=== PATIENT | male | born 1980 | race Caucasian/White ===

== ENCOUNTER 2021-03-10 16:27 | Outpatient (CLI) | payer OTHER, SELFPAY ==
--- NOTE | ~2021-03-10 | XR_ITS ---
EXAMINATION: XR lumbar spine min 4V DATE: 03/10/2021 16:59 INDICATION: One year flow back pain. TECHNIQUE: Anteroposterior, lateral, and bilateral oblique views of the lumbar spine, and cone-down l ateral view of the lumbosacral junction were obtained. COMPARISON: CT abdomen and pelvis dated 01/20/2017 FINDINGS: Minimal lumbar levocurvature. Unchanged 3 mm retrolisthesis L5 on S1. Minimal likely physiologic ante rior wedging at T11-L1. Mild disc height loss at T11-T12 through L5-S1 excepting T12-L1. No pars inte rarticularis defects. Multilevel mild lumbar facet osteoarthritis. Sacral arches are intact. Mild catalina ateral sacroiliac osteoarthritis. IMPRESSION: 1. Mild lumbar spondylosis. Reviewed, dictated and finalized at location A. IMPRESSION: 1. Mild lumbar spondylosis.
== END 2021-03-10 16:28 | disposition home or self-care (01) ==
LOC: ANHIMG 16:33
PROVIDERS: PCP Internal Medicine; Visit Provider Internal Medicine
DX: M47.896 Other spondylosis, lumbar region (principal)
CPT/HCPCS: 72110

== ENCOUNTER 2024-11-05 08:09 | Outpatient (CLI) | payer OTHER, SELFPAY ==
--- NOTE | ~2024-11-05 | CT_ITS ---
CT brain wo con Ordering provider: Deuce Curtis, History: 44 years Male with . Other amnesia . Comparison: None. Technique: CT of the head without contrast. Radiation reduction technique utilized.The dose-length product was 681 mGy-cm. FINDINGS: BRAIN PARENCHYMA AND CSF SPACES: No midline shift, mass effect or hemorrhage. The brain parenchyma a nd CSF spaces are otherwise normal. VISUALIZED PARANASAL SINUSES: Bilateral ethmoid sinus disease.. MASTOIDS: Well aerated. BONES: The bones appear intact. SOFT TISSUES: Visualized nasopharynx is normal. Superficial soft tissues are normal. IMPRESSION: No acute intracranial findings. Reviewed, dictated and finalized at location A. [employer]
--- OUTSIDE RECORDS SUMMARY | 2024-11-12 13:15 | XMS_ITS | CONTINUITY OF CARE DOCUMENT ---
Author Name [email or web address] riddle Address Unknown Organization [facility] Address [address] [place] [address] [address] [place] [address] Phone [phone] Care Team Providers Care Target Developer Name Role Phone venkatesh riddle Unavailable Unavailable
--- OUTSIDE RECORDS SUMMARY | 2024-11-12 13:15 | XMS_ITS | Data Portability ---
Author Organization [place] [facility], Main Office Address [address] [place] [address] Assessment No assessment recorded. Plan of Treatment Reminders Order Date Submit Date Provider Last Modified By Organization Details Last Modified Time Details Appointments None recorded. Lab PSA, serum or plasma 023 023 [id number] [facility], [address], [place], [address], 3 09:55:43 lipid panel, serum 023 023 [id number] [facility], [address], [place], [address], 3 09:55:42 lipid panel, serum 023 023 [id number] [facility], [address], [place], [address], 3 09:55:42 CBC w/ auto diff 023 023 [facility], [address], [place], [address], 3 09:55:42 T4, free, serum 023 023 [id number] [facility], [place], [address], 3 09:55:42 TSH, serum or plasma 023 023 [id number] [facility], [address], [address], [place], [address], 3 09:55:42 CMP, serum or plasma 024 [id number] [facility], [address], [address], [place], [address], 4 11:38:38 lipid panel, serum 024 [email or web address] [facility], [address], [address], [place], [address], 4 11:38:38 PSA, serum or plasma [id number] [facility], [address], [address], [place], [address], 4 10:14:23 CMP, serum or plasma 024 [id number] [facility], [address], [address] [place], [place], [address], 4 10:14:22 lipid panel, serum 024 [facility], [address], [address] [place], [place], [address], 4 10:14:22 CBC w/ auto diff 024 [facility], [address], [address], [place], [address], 4 10:14:22 TSH, serum or plasma 024 024 [id number] [facility], [address], [address], [place], [address], 4 10:14:23 T4, free, serum 024 [facility], [address], [place], [address], 4 10:14:23 vitamin B12, serum [id number] [facility], [address], [place], [address], 4 10:14:23 Referral None recorded. Procedures None recorded. Surgeries None recorded. Imaging None recorded. Medication Orders None recorded. Patient TargetsNo targets recorded. Patient Instructions Encounter Date Encounter Id Patient Instructions Last Modified By Organization Details Last Modified Time 03/01/2023 [id number] Follow-up for hyperlipidemia clinically stable doing well. Does need blood work in the form of CBC, CMP, lipid, thyroid and PSA. Continue on current Rx follow-up in six months. [email or web address] Not available 03/01/2023 16:33:10 08/30/2023 [id number] Follow-up hyperlipidemia -obesity class one all clinically stable. Will continue on current Rx at this time. Had recent blood work looked fine. Will continue on medications and follow-up in six months. Portions of the record may have been created with voice recognition software. Occasional wrong-word or ? hneed-t-ylje? substitutions may have occurred due to the inherent limitations of voice recognition software. Read the chart carefully and recognize, using context, where substitutions have occurred. Next Appt: 6 Months Approximate Date: 02/26/2024 [email or web address] Not available 08/30/2023 17:04:52 03/16/2024 [id number] risk assessment* [email or web address] Not availabl e 03/16/2024 17:37:08 INFLUENZA VACCIN E TD/TDAP Recommended today, patient declined Ordered Pat ient will get at local pharmacy/health department PNEUMONIA VACCINE Ordered Recommended today, patient declined Patient will get at local pharmacy/health department Recommend ed at age 65 SHINGLES PSA Ordered No screening necessary patient is up to date COLORECTAL SCREENING Recommended today, but patient declined Ordered Col onoscopy declined. Cologuard ordered No screening necessary until age 45 DEPRESSION SCREENING Negative BMI Overweight NUTRITION PHYSICAL ACTIVITY ALCOHOL USE No alcohol use Occasional/Socia l Use TOBACCO USE LUNG CANCER SCREENING Non Smoker-not indicated SEXUALLY ACTIVE HEPATITIS C SCREENING Not indicated GLUCOSE SCREENING LIPID SCREENING [email or web address] Not available 03/16/2024 17:23:06 Medical wellness evaluation risk assess. Follow-up for hyperlipidemia currently clinically stable. Does not really due for a PSA at this time. Will continue on current Rx check a lipid and CMP panel. Will also check a lipoprotein level. Follow-up in six months Next Appointment: 6 Months Approximate Date: 09/12/2024 Portions of the record may have been created with voice recognition software. Occasional wrong-word or ? rewca-y-zptl? substitutions may have occurred due to the inherent limitations of voice recognition software. Read the chart carefully and recognize, using context, where substitutions have occurred. Not available 03/16/2024 17:36:56 10/19/2024 [id number] Follow-up for hyperlipidemia and memory impairment. Plan to get a CT scan of the brain without contrast to rule out the possibility of any intracranial abnormalities. Also check blood work consisting of CBC, CMP, lipid, thyroid and B12 level. Pending those results may need to consider further diagnostic or referral for evaluation of cognitive or neuropsychiatric problems. Additional Orders - Directives - Recommendations 1. CT scan of the brain without contrast cognitive impairment Follow Up: 6 Months Approximate Date: 04/17/2025 Portions of the record may have been created with voice recognition software. Occasional wrong-word or ? lrxoh-k-gkkl? substitutions may have occurred due to the inherent limitations of voice recognition software. Read the chart carefully and recognize, using context, where substitutions have occurred. Created: Deuce Curtis M.D. 10.19.2024 04:28 PM [email or web address] Not available 10/19/2024 17:28:16 Reason for Referral None Reported. Results Created Date Observation Date Name Description Value Unit Range Abnormal Flag Note LastModifiedBy Organization Detail LastModifiedTime 11/02/20 22 11/02/2022 SARS- COV-2 RNA(C OVID1 9),RT -PCR sars-cov-2 RNA(covid19) ,RT-PCR negati ve This test has been autho rized by the FDA under an Emerg ency Use Autho rizat ion (EUA) for use by autho rized labor atori es. Negat elis resul ts do not precl ude SARS- CoV-2 and shoul d not be used as the sole basis for treat ment or other patie nt manag ement decis ions. Test resul ts shoul d be corre lated with the clini yuri histo ry, epide miolo gical data, and other data avail able to the clini antony evalu ating the patie nt. Sea berrios w the Fact Sheet s for healt h care provi ders and patie nts at [facility] emil: https ://ww Spodly.[employer]baza[employer] .gov/ media /1363 12/do wnloa d https ://ww Spodly.[employer] .gov/ media /1363 13/do wnloa d https ://[employer] .gov/ media /1421 92/do wnloa d https ://[employer] .gov/ media /1421 91/do wnloa d Metho dolog y: Real- Time RT-PC R Not Available [facility] (Lab) [address] [place], [address], 11/02/2022 11:06:14 11/02/20 22 11/02/2022 INFLU MALA A/B ANTIG EN RAPID flu A negati ve negati ve Not Available [facility] (Lab) [address] [place], [address], 11/02/2022 10:30:53 11/02/20 22 11/02/2022 INFLU MALA A/B ANTIG EN RAPID flu B negati ve negati ve THIS TEST CAN NOT DISTI NGUIS H INFLU MALA A VIRUS SUBTY PES. ALSO, SEA E NOTE THAT A NEGAT ELIS RESUL T DOES NOT EXCLU DE INFLU MALA VIRUS INFEC TION. IF MORE CONCL USIVE TESTI NG IS AMOR ED, [facility] W-UP CONFI RMATO RY TESTI NG WITH RT-PC R IS SONDRA FORDE. Not Available [facility] (Lab) [address] [place], [address], 11/02/2022 10:30:53 11/02/20 22 11/02/2022 INFLU MALA A/B ANTIG EN RAPID valid QC positi ve Not Available [facility] (Lab) [address] [place], [address], 11/02/2022 10:30:53 11/02/20 22 11/02/2022 INFLU MAAL A/B ANTIG EN RAPID lot # [id number] Not Available [facility] (Lab) [address] [place], [address], 11/02/2022 10:30:53 11/02/20 22 11/02/2022 INFLU MALA A/B ANTIG EN RAPID source remote inpatient coder swab Not Available [facility] (Lab) [address] [place], [address], 11/02/2022 10:30:53 06/14/20 23 06/19/2023 LIPID PANEL (REFL ) cholesterol, total 137 mg/dL <200 normal Not Available [address], [address], 06/19/2023 20:27:08 06/14/20 23 06/19/2023 LIPID PANEL (REFL ) HDL cholesterol 41 mg/dL > or = 40 normal Not Available [address], [address], 06/19/2023 20:27:08 06/14/20 23 06/19/2023 LIPID PANEL (REFL ) triglyceride s 122 mg/dL <150 normal Not Available [address], [address], 06/19/2023 20:27:08 06/14/20 23 06/19/2023 LIPID PANEL (REFL ) LDL-choleste rol 76 mg/dL _(yuri c) normal Refer ence range : <100 Amor able range <100 mg/dL for prima ry preve ntion ; <70 mg/dL for patie nts with CHD or diabe tic patie nts with > or = 2 CHD risk facto rs. LDL-C is now calcu lated using the Nadeen n-Hop kins calcu latio n, which is a valid ated novel metho d provi ding tomeka r accur acy than the Fried petar equat ion in the estim ation of LDL-C . Nadeen n SS et al. SHE. 2013; 310(1 9): 2061- 2068 (http ://ed ucati on.Qu Sada mendenhallMirakls. com/f aq/FA Q164) Not Available [facility] [address] [address] [place], [address], 06/19/2023 20:27:08 06/14/20 23 06/19/2023 LIPID PANEL (REFL ) chol/HDLC ratio 3.3 (calc ) <5.0 normal Not Available [facility] [address] [address] , [place], [address], 06/19/2023 20:27:08 06/14/20 23 06/19/2023 LIPID PANEL (REFL ) non HDL cholesterol 96 mg/dL _(yuri c) <130 normal For patie nts with diabe emil plus 1 major ASCVD risk facto r, treat ing to a non-H DL-C goal of <100 mg/dL (LDL- C of <70 mg/dL ) is victor hugo garg optio n. Not Available [facility] [address] [address] [facility] [place], [address], 06/19/2023 20:27:08 06/14/20 23 06/19/2023 PSA, POST- PROST ATECT HAYLEY PSA, icma 0.50 NG/mL REFER ENCE RANGE S for PSA: LESS THAN 0.10 ng/mL AFTER RADIC AL PROST ATECT HAYLEY. 4.0 ng/mL OR LESS IN HEALT HY MALES WITHO UT PROST ATECT HAYLEY. PSA value s obtai joan with diffe rent assay metho ds or kits canno t be used inter carbone eably . This test was perfo rmed using the Beck an Coult er DxI metho d. PSA, ICMA is not to be used as a diagn ostic proce dure witho ut confi rmati on of the diagn osis by ano er estab lisyong d produ ct or proce dure. The lower limit of accur ate quant ifica tion for this assay is 0.02 ng/mL . PSA value s less than 0.02 ng/mL canno t be accur ately measu red and will be repor luis as less than 0.02 ng/mL . Speci mens with PSA level s below the lower limit of accur ate quant ifica tion shoul d be consi dered as negat elis. In patie nts with a negat elis resul t for post prost atect hayley PSA, seria l monit oring of PSA level s at regul ar inter vals, along with physi yuri exami natio ns and other tests , may help to detec t recur rent prost ate cance r. Not Available [facility] [address], [address], 06/19/2023 20:27:06/14/20 23 06/19/2023 CBC (INCL UDES DIFF/ PLT) white blood cell count 4.7 thous and/u L 3.8-10 .8 normal Not Available [facility] [address], [address], 06/19/2023 20:27:06/14/20 23 06/19/2023 CBC (INCL UDES DIFF/ PLT) red blood cell count 4.71 zoey on/uL 4.20-5 .80 normal Not Available [facility] [address], [address], 06/19/2023 20:27:09 06/14/20 23 06/19/2023 CBC (INCL UDES DIFF/ PLT) hemoglobin 14.8 g/dL 13.2-1 7.1 normal Not Available [facility] [address], [address], 06/19/2023 20:27:09 06/14/20 23 06/19/2023 CBC (INCL UDES DIFF/ PLT) hematocrit 43.9 % 38.5-5 0.0 normal Not Available [address], [address], 06/19/2023 20:27:06/14/20 23 06/19/2023 CBC (INCL UDES DIFF/ PLT) MCV 93.2 fL 80.0-1 00.0 normal Not Available [address], [address], 06/19/2023 20:27:06/14/20 23 06/19/2023 CBC (INCL UDES DIFF/ PLT) MCH 31.4 pg 27.0-3 3.0 normal Not Available [facility] [address], [address], 06/19/2023 20:27:06/14/20 23 06/19/2023 CBC (INCL UDES DIFF/ PLT) MCHC 33.7 g/dL 32.0-3 6.0 normal Not Available [address], [address], 06/19/2023 20:27:06/14/20 23 06/19/2023 CBC (INCL UDES DIFF/ PLT) RDW 12.3 % 11.0-1 5.0 normal Not Available [address], [address], 06/19/2023 20:27:06/14/20 23 06/19/2023 CBC (INCL UDES DIFF/ PLT) platelet count 309 thous and/u L 140-40 0 normal Not Available [facility] [address], [address], 06/19/2023 20:27:06/14/20 23 06/19/2023 CBC (INCL UDES DIFF/ PLT) MPV 8.4 fL 7.5-12 .5 normal Not Available [address], [address], 06/19/2023 20:27:09 06/14/20 23 06/19/2023 CBC (INCL UDES DIFF/ PLT) absolute neutrophils 3116 cells /uL 1500-7 800 normal Not Available [address], [address], 06/19/2023 20:27:09 06/14/20 23 06/19/2023 CBC (INCL UDES DIFF/ PLT) absolute lymphocytes 968 cells /uL 850-39 00 normal Not Available [address], [address], 06/19/2023 20:27:06/14/20 23 06/19/2023 CBC (INCL UDES DIFF/ PLT) absolute monocytes 418 cells /uL 200-95 0 normal Not Available [address], [address], 06/19/2023 20:27:09 06/14/20 23 06/19/2023 CBC (INCL UDES DIFF/ PLT) absolute eosinophils 169 cells /uL 15-500 normal Not Available [facility] [address], [address], 06/19/2023 20:27:09 06/14/20 23 06/19/2023 CBC (INCL UDES DIFF/ PLT) absolute basophils 28 cells /uL 0-200 normal Not Available [address], [address], 06/19/2023 20:27:09 06/14/20 23 06/19/2023 CBC (INCL UDES DIFF/ PLT) neutrophils 66.3 % normal Not Available [facility] [address], [address], 06/19/2023 20:27:09 06/14/20 23 06/19/2023 CBC (INCL UDES DIFF/ PLT) lymphocytes 20.6 % normal Not Available [facility] [address], [address], 06/19/2023 20:27:09 06/14/20 23 06/19/2023 CBC (INCL UDES DIFF/ PLT) monocytes 8.9 % normal Not Available [address], [address], 06/19/2023 20:27:09 06/14/20 23 06/19/2023 CBC (INCL UDES DIFF/ PLT) eosinophils 3.6 % normal Not Available [address], [address], 06/19/2023 20:27:09 06/14/20 23 06/19/2023 CBC (INCL UDES DIFF/ PLT) basophils 0.6 % normal Not Available [address], [address], 06/19/2023 20:27:09 06/14/20 23 06/19/2023 T4, FREE T4, free 1.1 NG/dL 0.8-1. 8 normal Not Available [address], [address], 06/19/2023 20:27:10 06/14/20 23 06/19/2023 TSH TSH 3.03 mIU/L 0.40-4 .50 normal Not Available [address], [address], 06/19/2023 20:27:11 11/05/20 24 11/05/2024 CT, brain , w/o contr ast No observ ation record ed. [address], [place], [address], 11/05/2024 14:01:23 Result Notes None recorded. 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 Not Available [facility] 3 14:48:34 Finding of body mass index 966944805 Active 2021 Not Available [facility] 3 14:48:34 Hypoglycem ia 402649932 Active Not Available [facility] 3 14:48:34 Contact dermatitis 24015123 Active Not Available [facility] 3 14:48:35 Hyperlipid emia 30616447 Active 2019 Not Available [facility] 3 14:48:35 Obese class I 3609333852260 07 Active 2022 Deuce Curtis MD [address], [place], [address] , [facility] 3 17:03:13 Pruritic rash 70656321 Active 2023 Ciara Baker CMA [facility], [place] [facility] 4 16:07:45 Acute bronchitis 78962868 Active 2023 Deuce Curtis MD [address], [place], [address] , [facility] 4 16:59:21 Memory impairment 662073252 Active 2023 Deuce Curtis MD [address], [place], [address] , [facility] 4 17:23:37 Disorder of prostate 34981693 Active 2023 Deuce Curtis MD [address], [place], [address] , [facility] 4 17:28:03 Problem Notes None recorded. Procedures Surgical History None recorded. Imaging Results Imaging Date Name Status LastModified by Organiz ation Details LastModified Time 11/05/2024 CT, brain, w/o contrast completed [address], [place], [address], 11/05/2024 14:01:23 Procedure Notes None recorded. Medical Equipment None Reported. Medications Name Sig Start Date Stop Date Status Note LastModified by Organization Details LastModified Time amoxicillin 500 mg capsule Take 1 capsule 3 times a day by oral route for 10 days. 10/06 completed Not Available Not Available Not Available atorvastati n 10 mg tablet TAKE 1 TABLET BY MOUTH EVERY DAY active Not Available Not Available No t Available benzonatate 200 mg capsule Take 1 capsule 3 times a day by oral route. 10/19 completed Not Available Not Available Not Available Medrol (Raz) 4 mg tablets in a dose pack Take by oral route as directed 03/01 completed Not Available Not Available Not Available Zithromax Z-Raz 250 mg tablet Take 2 TABLET EVERY DAY by oral route for 1 day then one daily 10/19 completed Not Available Not Available Not Available Proctozone- HC 2.5 % topical cream perineal applicator LUCIO THIN LAYER EXT AA 2 TO 4 XD 09/01 completed Not Available Not Available Not Available clotrimazol e-betametha sone 1 %-0.05 % topical cream APPLY TOPICALLY TO THE AFFECTED AREA TWICE DAILY 10/19 completed Not Available Not Available Not Available hydroxyzine HCl 10 mg tablet Take by oral route four times daily PRN for itching 11/19 completed Not Available Not Available Not Available multivitami n active Not Available Not Available Not Available Zyrtec 10 mg capsule Take by oral route. active Not Available Not Available No t Available [employer]NOW COVID-19 Ag Self Test kit TEST DIRECTED TODAY 03/01 completed Not Available Not Available Not Available Vitals Date Recorded Body mass index (BMI) Body height Oxygen saturation Oxygen saturation in Arterial blood by Pulse oximetry Heart rate Body temperature Body weight Systolic blood pressure Diastolic blood pressure Provider Name and Address Organization Details Last Updated DateTime 2 31.7 kg/m2 190.5 cm 98 % 98 % 74 /min 98.1 [degF] 270490. 46 g 114 mm[Hg] 70 mm[Hg] Not Available [facility] 3 14:47:56 Date Recorded Body height Body mass index (BMI) Body weight Heart rate Body temperature Oxygen saturation Oxygen saturation in Arterial blood by Pulse oximetry Systolic blood pressure Diastolic blood pressure Provider Name and Address Organization Details Last Updated DateTime 3 190.5 cm 33.4 kg/m2 620537. 16 g 76 /min 97 [degF] 98 % 98 % 122 mm[Hg] 78 mm[Hg] Corina Frausto [facility] 3 16:22:55 Date Recorded Body height Body mass index (BMI) Body weight Body temperature Heart rate Oxygen saturation Oxygen saturation in Arterial blood by Pulse oximetry Systolic blood pressure Diastolic blood pressure Provider Name and Address Organization Details Last Updated DateTime 3 190.5 cm 33.5 kg/m2 531996. 76 g 96.8 [degF] 71 /min 99 % 99 % 122 mm[Hg] 78 mm[Hg] Umm Maria MA [facility] 3 16:33:54 Date Recorded Body height Body mass index (BMI) Body weight Heart rate Body temperature Oxygen saturation Oxygen saturation in Arterial blood by Pulse oximetry Systolic blood pressure Diastolic blood pressure Provider Name and Address Organization Details Last Updated DateTime 4 190.5 cm 28.9 kg/m2 832537. 84 g 64 /min 97.3 [degF] 99 % 99 % 130 mm[Hg] 78 mm[Hg] MARITZA Zapata [facility] 4 17:18:16 Date Recorded Body height Body weight Heart rate Body temperature Oxygen saturation Oxygen saturation in Arterial blood by Pulse oximetry Systolic blood pressure Diastolic blood pressure Provider Name and Address Organization Details Last Updated DateTime 4 190.5 cm 516417. 25 g 72 /min 97 [degF] 99 % 99 % 130 mm[Hg] 72 mm[Hg] MARITZA Zapata [facility] 4 17:00:50 Social History None recorded. Functional Status None recorded. Mental Status None recorded. Family History Nothing Reported Notes:Mother 65 fro m complications of cystic fibrosis Father 75 ASHD, Interstitial lung disease, RA,High cholesterol and diverticulitis One older sister in good health. Medical History Condition Response NERVE DISEASE N BLINDNESS N RHEUMATIC FEVER N KIDNEY STONES N BLADDER PROBLEMS N MRSA N OTHER # 1 N POLIO N LUNG DISEASE/DISORDER N HISTORY OF DRUG ABUSE N RADIATION / CHEMOTHERAPY N COPD N Other # 2 N BLOOD DISEASES N EAR OR HEARING PROBLEMS N MUMPS N SHINGLES N BOWEL PROBLEMS N DEPRESSION (INCLUDING POST ) N STROKE/TIA N ULCERS N BENIGN PROSTATIC HYPERPLASIA N MEASLES N HYPOTENSION N MYOCARDIAL INFARCTION N OBESITY N GERD/NAUSEA N ANEURYSM N URINARY/BLADDER/KIDNEY PROBLEMS N CORONARY ARTERY DISEASE (CAD) N ADDICTION CONCERNS N Impotence N ENDOMETRIOSIS N USE OF BLOOD THINNERS N SKIN PROBLEMS N GASTROINTESTINAL DISORDER N PERIPHERAL VASCULAR DISEASE N MUSCLE,JOINT OR BONE PROBLEMS N GASTROINTESTINAL BLEEDING N BLOOD CLOTS N ASTHMA N CATARACTS N ERECTILE DYSFUNCTION N VARICOSITIES N GI PROBLEMS N Low Testosterone N INFERTILITY N AIDS/HIV N CHEMOTHERAPY / RADIATION N LIVER DISEASE N MALE HYPOGONADISM N HYPERTENSION N Deficiency N TOURETTE'S N ANXIETY DISORDER N BLOOD TRANSFUSION N ANEMIA/BLOOD DISORDER N CHRONIC EAR INFECTIONS N BRONCHITIS N TUBERCULOSIS N GLAUCOMA N FOOT PROBLEM N DIVERTICULITIS N SLEEP APNEA N CHICKENPOX N INFECTIOUS DISEASE N PROSTATE N HEART ARRHYTHMIA N INSOMNIA N HIGH CHOLESTEROL / HYPERLIPIDEMIA Y EYE PROBLEMS N HYPERTHYROIDISM N EDEMA N CHRONIC PAIN SYNDROME N HYPOTHYROIDISM N CONSTIPATION N CAROTID BLOCKAGE N BACK / NECK PROBLEMS N HAVE YOU BEEN HOSPITALIZED OR SEEN IN [facility] IN THE PAST YEAR ? N ATHEROSCLEROSIS N BREAST PROBLEMS N DIALYSIS N ECZEMA N OSTEOPOROSIS N ARTHRITIS N NO SIGNIFICANT PAST MEDICAL HISTORY N APPENDICITIS N DIABETES, TYPE N BAD TEETH N ENT N HEARTBURN / REFLUX N AUTISM SPECTRUM DISORDER (ASD) N HEPATITIS / LIVER DISEASE N GOUT N SLEEP DISORDER N ALZHEIMER'S DISEASE N Brain Problems N DEMENTIA N HERPES N SEIZURES/EPILEPSY N HEADACHES/MIGRAINES N VASCULAR DISEASE N PACEMAKER N Blood Disorder N DIZZINESS N HEART DISEASE/HEART PROBLEMS N KIDNEY DISEASE N MULTIPLE SCLEROSIS N CANCER: SPECIFY N CARDIAC ARRHYTHMIA N ATRIAL FIBRILLATION N Gall Stones N PULMONARY EMBOLISM N AUTOIMMUNE DISEASE N Immunizations Vaccine Type Date Status Note Provider Nam e and Address Organization Details Recorded Time SARS-COV-2 (COVID-19) vaccine, UNSPECIFIED 1 completed Not Available [facility] 01/09/2023 14:51:48 SARS-COV-2 (COVID-19) vaccine, UNSPECIFIED 1 completed Not Available [facility] 01/09/2023 14:51:48 Influenza, split virus, quadrivalent, PF 2 completed Not Available [facility] 01/09/2023 14:51:48 Influenza, split virus, quadrivalent, PF 1 completed Not Available [facility] 01/09/2023 14:51:48 Past Encounters Encounter ID Performer Location Encounter Start Date Encounter Closed Date Diagnosis/Indication Diagnosis SNOMED-CT Code Diagnosis ICD10 Code [id number] [facility] [place] [address] [place] [address] y , [place] [address] 03/10/2021 00:00:00 03/10/2021 16:48:[id number] [facility] [place] [address] [place] [address] y , [place] [address] 09/01/2021 00:00:00 09/01/2021 16:43:[id number] [facility] [place] lle [address] [place] [address] y , [place] [address] 03/02/2022 00:00:00 03/02/2022 16:41:[id number] [facility] [place] [address] [place] [address] y , [place] [address] 08/31/2022 00:00:00 08/31/2022 16:46:[id number] [facility] [place] [address] [place] [address] [place] [address] 03/01/2023 16:13:58 03/01/2023 16:35:19 Hyperlipidemia 33871988 E78.5 Disorder of prostate 302 18368 N42.9 [id number] [address] [facility] [place] [address] [place] [address] y , [place] [address] 08/30/2023 16:26:12 08/30/2023 17:10:49 Hyperlipidemia 17137850 E78.5 Obese class I [id number] 79488 E66.9 [id number] Deuce Curtis MD [facility] Internal Med [facility] [address] [address] 03/16/2024 17:12:47 03/16/2024 17:39:59 Adult health examination 972930363 Z00.00 Depression screening 171 679882 Z13.31 Hyperlipidemia 01167251 E78.5 [id number] [facility] Internal Med [facility] 2043 [facility] 24 [place] [address] 10/19/2024 16:50:32 10/19/2024 17:33:05 Hyperlipidemia 22247542 E78.5 Memory impairment 481304 006 R41.3 Disorder of prostate 302 28615 N42.9 Health Concerns Section Related Observation LastModified by Organization Detai ls LastModified Time None Recorded Concern Status LastModified by Organization Details LastModified Time None Recorded Advance Directives Directive None Recorded Payers Encounter Date Sequence Insurance Name Policy Number Policy Ceron Covered Member ID Ceron Member ID Guarantor Name 03/01/2023 1 [facility] 3Scan CHOICE PLUS (PPO) [id number] Chapincito Cordero Errol [id number] Chapincito Cordero Errol 08/30/2023 1 [facility] 3Scan CHOICE PLUS (PPO) [id number] Chapincito Cordero Errol [id number] Chapincito Cordero Errol 03/16/2024 1 [facility] 3Scan CHOICE PLUS (PPO) [id number] Chapincito A Errol [id number] Chapincito Cordero Errol 10/19/2024 1 [facility] 3[employer] CHOICE PLUS (PPO) [id number] Chapincito Cordero Errol [id number] Chapincito Cordero Errol Notes Date Note Type Note Provider Name and Address Organization Details Recorded Time 3 text/html Patient Name: Chapincito Cordero ElmaiterDate Of Service: Saturday ( 03.01.2023 ): 1980 Age: 42 There has been approximately a 13 lb weight gain since 08/31/2022. This represents approximately a 5.1% change in weight. Weight change attributable to lifestyle changes. Vital Signs:Blood Pressure: Sitting Rt. Arm 122/78Pulse: Sitting 76 /min and RegularRespirations: 12Height 75 in or 1.9 mWeight 267 lb or 121.1 kgBMI 33.4Temperature: 97 F or 36.1 CPulse Oximetry: 98 % at rest on no oxygen Chief Complaint: Addressed in HPI Problems or conditions discussed in the HPI were the only ones reviewed during the encounter.Only social and family history addressed in the HPI were reviewed during this encounter. Attendant(s): None Constitutional and Systemic Symptoms: none Medication Reconciliation: from medication list. History of Present Illness #1. Type II Hypercholesterolaemia: Currently taking medication and tolerating well. No interval complaints of any muscle pain or arthralgia. No significant liver changes with medications. Last lipid panel: fair control. Therapy reviewed regarding treatment of cholesterol management and include diet and Atorvastatin Calcium.Medication List Reviewed and Reconciled 3Atorvastatin Calcium 10 MG (TABLET - ORAL) Once DailySocial HistoryDoes not smoke or drink.Working at a [employer] service currentlyFamily HistoryMother 65 from complications of cystic fibrosisFather 75 ASHD, Interstitial lung disease, RA,High cholesterol and diverticulitisOne older sister in good health. Deuce Curtis MD [address] [place] [address], [place], [address], [facility] [employer] 03/01/2023 16:33:26 3 text/html Patient Name: Chapincito Cordero ReiterDate Of Service: Saturday ( 08.30.2023 ): 1980 Age: 42 There has been approximately a 1 lb weight gain since 03/01/2023. This represents approximately a .4% change in weight. Weight change attributable to lifestyle changes. Vital Signs:Blood Pressure: Sitting Rt. Arm 122/78Pulse: Sitting 71 /min and RegularRespiratory Rate: 12Height 75 in or 1.9 mWeight 268 lb or 121.6 kgBMI 33.5Temperature: 96.8 F or 36.0 CPulse Oximetry: 99 % at rest on no oxygen Chief Complaint: Addressed in HPI Problems or conditions discussed in the HPI were the only ones reviewed during the encounter.Only social and family history addressed in the HPI were reviewed during this encounter. Attendant(s): NoneConstitutional and Systemic Symptoms:none Medication Reconciliation: from medication list. History of Present Illness #1. Type II Hypercholesterolaemia: Currently taking medication and tolerating well. No interval complaints of any muscle pain or arthralgia. No significant liver changes with medications. Last lipid panel: fair control. Therapy reviewed regarding treatment of cholesterol management and include diet. #2. Hx of obesity. Currently Class 1 Obesity BMI 30-34.99. Has tried numerous dietary support and supplements with no benefit. Instructed on the health consequences of the obese status particularly cancer - diabetes and heart disease. Discussed new modalities of weight loss including GLP-1 medications that are used to treat diabetes. Potential candidate for bariatric surgery: No. Wishes to be evaluated by Dietary: No and was offered to be evaluated and instructed by product director on weight loss diet.Medication List Reviewed and Reconciled 3Atorvastatin Calcium 10 MG (TABLET - ORAL) Once DailySocial HistoryDoes not smoke or drink.Working at a [employer] service currentlyFamily HistoryMother 65 from complications of cystic fibrosisFather 75 ASHD, Interstitial lung disease, RA,High cholesterol and diverticulitisOne older sister in good health. TEST RESULT RANGE UNITSLIPID PANEL (REFL) Date: 3CHOLESTEROL, TOTAL 137 <200 MG/DLHDL CHOLESTEROL 41 > OR = 40 MG/DLTRIGLYCERIDES 122 <150 MG/DLLDL-CHOLESTEROL 76 MG/DL (CALC) Deuce Curtis MD [address] [facility], [facility] [address], [place], [address], [facility] [employer] 08/30/2023 17:05:10 4 text/html Patient Name: Chapincito Cordero ReiterDate Of Service: Saturday ( 03.16.2024 ): 1980 Age: 43 There has been approximately a 37 lb weight loss since 08/30/2023. This represents approximately a 13.8% change in weight. Weight change attributable to lifestyle changes. Vital Signs:Blood Pressure: Sitting Rt. Arm 130/78Pulse: Sitting 64 /min and RegularRespiratory Rate: 12Height 75 in or 1.9 mWeight 231 lb or 104.8 kgBMI 28.9Temperature: 97.3 F or 36.3 CPulse Oximetry: 99 % at rest on no oxygen Chief Complaint: Addressed in HPI Problems or conditions discussed in the HPI were the only ones reviewed during the encounter.Only social and family history addressed in the HPI were reviewed during this encounter. Attendant(s): NoneConstitutional and Systemic Symptoms:none Medication Reconciliation: from medication list. History of Present Illness In for a well patient check up. Last well patient evaluation was approximately one year. No interval complaints of any new major medical problems. No hx of any chest pain, shortness of breath, nausea, vomiting, diarrhea or constitutional symptoms.PSA already performedColonoscopy or Cologuard: not dueImmunizations Up To Date or refuses to takeNo Significant Change In Family HxFall Risk normalDepression Score: 0Hearing normalVisual correctedReviewed Smoking and Drug HistoryReviewed Immunization HistoryInstructed on importance of weight on diabetes, heart and other diseases aggravated by obesity.Instructed on importance of weight on diabetes, heart and other diseases aggravated by obesity. #1. Type II Hypercholesterolaemia: Currently taking medication and tolerating well. No interval complaints of any muscle pain or arthralgia. No significant liver changes with medications. Last lipid panel: fair control. Therapy reviewed regarding treatment of cholesterol management and include diet and Atorvastatin Calcium. Active Medication ListAtorvastatin Calcium 10 MG (TABLET - ORAL) Once Daily Social HistoryDoes not smoke or drink.Working at a [employer] service currently Family HistoryMother 65 from complications of cystic fibrosisFather 75 ASHD, Interstitial lung disease, RA,High cholesterol and diverticulitisOne older sister in good health. TEST RESULT RANGE UNITSCBC (INCLUDES DIFF/PLT) Date: 06/14/2023WHITE BLOOD CELL COUNT 4.7 3.8-10.8 THOUSAND/ULHEMOGLOBIN 14.8 13.2-17.1 G/DLHEMATOCRIT 43.9 38.5-50.0 %PLATELET COUNT 309 140-400 THOUSAND/ULLIPID PANEL (REFL) Date: 3CHOLESTEROL, TOTAL 137 <200 MG/DLHDL CHOLESTEROL 41 > OR = 40 MG/DLTRIGLYCERIDES 122 <150 MG/DLLDL-CHOLESTEROL 76 MG/DL (CALC)PSA, POST-PROSTATECTOMY Date: 3PSA, ICMA 0.50 NG/MLT4, FREE Date: 06/14/2023T4, FREE 1.1 0.8-1.8 NG/DLTSH Date: 06/14/2023TSH 3.03 0.40-4.50 MIU/L Deuce Curtis MD [address] [facility], [facility] [address], [place], [address], [facility] [employer] 03/16/2024 17:37:11 4 text/html Patient Name: Chapincito Cordero ReiterDate Of Service: Saturday ( 10.19.2024 ): 1980 Age: 44 Vital Signs:Blood Pressure: Sitting Rt. Arm 130/72Pulse: Sitting 72 /min and RegularRespiratory Rate: 16Height 75.00 in or 1.9 mWeight 230.00 lb or 104.3 kgBMI 28.7Temperature: 97.0 F or 36.1 CPulse Oximetry: 99 % at rest on no oxygen Chief Complaint: Addressed in HPI Problems or conditions discussed in the HPI were the only ones reviewed during the encounter.Only social and family history addressed in the HPI were reviewed during this encounter. Attendant(s): NoneConstitutional and Systemic Symptoms:none Medication Reconciliation: from medication list. History of Present Illness #1. Type II Hypercholesterolaemia: Currently taking medication and tolerating well. No interval complaints of any muscle pain or arthralgia. No significant liver changes with medications. Last lipid panel: fair control. Therapy reviewed regarding treatment of cholesterol management and include diet and Atorvastatin Calcium. #2. Complaining of some mild memory issues. Mainly manifested by meetings throughout the day which there is a number of complex issues going on he has a hard time maintaining concentration as well as remembering details of the meetings. Denies any history of any other associated dementia type symptomatology. On mini-mental status examination performs normally. Will check some baseline blood work including a thyroid and B12 along with his lipid panel. May need consideration for possible ADD or other neuropsychiatric symptoms.: Active Medication ListAtorvastatin Calcium 10 MG (TABLET - ORAL) Once DailyZyrtec 10 MG TABLET, FILM COATED One Daily PrnMultivitamin One Daily Social HistoryDoes not smoke or drink.Working at a [employer] service currently Family HistoryMother 65 from complications of cystic fibrosisFather 75 ASHD, Interstitial lung disease, RA,High cholesterol and diverticulitisOne older sister in good health. Deuce Curtis MD [address] [place] [address], [place], [address], [place] [facility] 10/19/2024 17:28:32
--- OUTSIDE RECORDS SUMMARY | 2024-11-12 13:15 | XMS_ITS | Continuity of Care Document ---
Author Organization [place] [facility] Internal Med [facility] Address [address] [address] Assessment No assessment recorded. Plan of Treatment Reminders Order Date Submit Date Provider Last Modified By Organization Details Last Modified Time Details Appointments None recorded. Lab PSA, serum or plasma 024 [employer] [facility], [address], [place], [address], 4 10:14:23 CMP, serum or plasma 024 [id number] [employer] [facility], [address], [place], [address], 4 10:14:22 lipid panel, serum 024 [employer] [facility], [address], [place], [address], 4 10:14:22 CBC w/ auto diff 024 [id number] [employer] [facility], [address], [place], [address], 4 10:14:22 TSH, serum or plasma 024 [id number] [employer] [facility], [address], [place], [address], 4 10:14:23 T4, free, serum [id number] [employer] [facility], [address], [place], [address], 4 10:14:23 vitamin B12, serum [employer] [facility], [address], [place], [address], 4 10:14:23 Referral None recorded. Procedures None recorded. Surgeries None recorded. Imaging None recorded. Medication Orders None recorded. Patient TargetsNo targets recorded. Patient Instructions Encounter Date Encounter Id Patient Instructions Last Modified By Organization Details Last Modified Time 10/19/2024 [id number] Follow-up for hyperlipidemia and memory impairment. Plan [...] voice recognition software. Occasional wrong-word or ? [id number]-b-[id number]? substitutions may have occurred due to the inherent limitations of voice recognition software. Read the chart carefully and recognize, using context, where substitutions have occurred. Created: Deuce Curtis M.D. 10.19.2024 04:28 PM [place] [id number] Not available 10/19/2024 17:28:16 Reason for Referral None Reported. Results Created Date Observation Date Name Description Value Unit Range Abnormal Flag Note LastModifiedBy Organization Detail LastModifiedTime 11/05/20 24 11/05/2024 CT, brain , w/o contr ast No observ ation record ed. [address], [place], [address], 11/05/2024 14:01:23 Result Notes None recorded. 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 Not Available [facility] 3 14:48:34 Congenital pes planus 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 Active Not Available [facility] 3 14:48:34 Finding of body mass index 610440637 Active 2021 Not Available [facility] 3 14:48:34 Hypoglycem ia 567955286 Active Not Available [facility] 3 14:48:34 Contact dermatitis 08719210 Active Not Available [facility] 3 14:48:35 Hyperlipid emia 41699000 Active 2019 Not Available [facility] 3 14:48:35 Obese class I 3357383222923 07 Active 2022 Deuce Curtis MD [address], [place], [address] , [facility] 3 17:03:13 Pruritic rash 53326217 Active 2023 Ciara Baker CMA null, [place] [facility] 4 16:07:45 Acute bronchitis 80205927 Active 2023 Deuce Curtis MD [address], [place], [address] , [facility] 4 16:59:21 Memory impairment 824588940 Active 2023 Deuce Curtis MD [address], [place], [address] , [facility] 4 17:23:37 Disorder of prostate 89247320 Active 2023 Deuce Curtis MD [address], [place], [address] , [facility] [employer] [facility] [email or web address] 4 17:28:03 Problem Notes None recorded. Medical Equipment None Reported. [...] Available Not Available Vitals Date Recorded Body height Body weight Heart rate Body temperature Oxygen saturation Oxygen saturation in Arterial blood by Pulse oximetry Systolic blood pressure Diastolic blood pressure Provider Name and Address Organization Details Last Updated DateTime 4 190.5 cm 399033. 25 g 72 /min 97 [degF] 99 % 99 % 130 mm[Hg] 72 mm[Hg] MARITZA Zapata [place] [employer] [facility] [email or web address] 4 17:00:50 Social History None recorded. Functional [...] ARTERY DISEASE (CAD) N ADDICTION CONCERNS N ENDOMETRIOSIS N Impotence N USE OF BLOOD THINNERS N SKIN [...] GLAUCOMA N FOOT PROBLEM N DIVERTICULITIS N CHICKENPOX N SLEEP APNEA N INFECTIOUS DISEASE N HEART ARRHYTHMIA N PROSTATE N INSOMNIA N HIGH CHOLESTEROL / HYPERLIPIDEMIA Y HYPERTHYROIDISM N EYE PROBLEMS N EDEMA N CHRONIC PAIN SYNDROME N HYPOTHYROIDISM N CAROTID BLOCKAGE N CONSTIPATION N BACK / NECK PROBLEMS N HAVE YOU BEEN HOSPITALIZED OR SEEN IN [facility] IN THE PAST YEAR ? N ATHEROSCLEROSIS N BREAST PROBLEMS N DIALYSIS N ECZEMA N OSTEOPOROSIS N ARTHRITIS N NO SIGNIFICANT PAST MEDICAL HISTORY N APPENDICITIS N DIABETES, TYPE N BAD TEETH N ENT N HEARTBURN / REFLUX N AUTISM SPECTRUM DISORDER (ASD) N HEPATITIS / LIVER DISEASE N GOUT N SLEEP DISORDER N ALZHEIMER'S DISEASE N Brain Problems N HERPES N DEMENTIA N HEADACHES/MIGRAINES N SEIZURES/EPILEPSY N VASCULAR DISEASE N PACEMAKER N Blood Disorder N DIZZINESS N HEART DISEASE/HEART PROBLEMS N KIDNEY DISEASE N MULTIPLE SCLEROSIS N CARDIAC ARRHYTHMIA N CANCER: SPECIFY N ATRIAL FIBRILLATION N Gall Stones N PULMONARY EMBOLISM N AUTOIMMUNE DISEASE N Immunizations Vaccine Type Date Status Note Provider Nam e and Address Organization Details Recorded Time SARS-COV-2 (COVID-19) vaccine, UNSPECIFIED 1 completed Not Available [facility] 01/09/2023 14:51:48 SARS-COV-2 (COVID-19) vaccine, UNSPECIFIED 1 completed Not Available [facility] 01/09/2023 14:51:48 Influenza, split virus, quadrivalent, PF 2 completed Not Available [facility] 01/09/2023 14:51:48 Influenza, split virus, quadrivalent, PF 1 completed Not Available On license of [facility] 01/09/2023 14:51:48 Past Encounters Encounter ID Performer Location Encounter Start Date Encounter Closed Date Diagnosis/Indication Diagnosis SNOMED-CT Code Diagnosis ICD10 Code [id number] Deuce Curtis MD [facility] [address] [facility] [address] [place] [address] 10/19/2024 16:50:32 10/19/2024 17:33:05 Hyperlipidemia 63259178 E78.5 Memory impairment 231776 006 R41.3 Disorder of prostate 302 59097 N42.9 Health Concerns Section Related Observation LastModified by Organization Detai ls LastModified Time None Recorded Concern Status LastModified by Organization Details LastModified Time None Recorded Payers Encounter Date Sequence Insurance Name Policy Number Policy Ceron Covered Member ID Ceron Member ID Guarantor Name 10/19/2024 1 [facility] CHOICE PLUS (O) [id number] Chapincito Norton [id number] Chapincito Norton Notes Date Note Type Note Provider Name and Address Organization Details Recorded Time 10/19/2024 text/html Patient Name: Suhail russow Gil ReiterDate Of Service: Saturday ( 10.19.2024 ): [...] HistoryDoes not smoke or drink.Working at a [employer] service currently Family HistoryMother 65 from complications of cystic fibrosisFather 75 ASHD, Interstitial lung disease, RA,High cholesterol and diverticulitisOne older sister in good health. Deuce Curtis MD [address] [address], [place], [address], [place] [facility] [email or web address] 10/19/2024 17:28:32
--- OUTSIDE RECORDS SUMMARY | 2024-11-12 13:16 | XMS_ITS | Continuity of Care Document ---
Author Organization [facility] Address [address] [place] [address] Phone Care Team Providers Care Service Dog Trainer Name Role Phone Wolf OD, Tono Unavailable Unavailable Advance Directives Directive Yes / No Effective Date File Name No Information Encounters Encounter Description Practice Location Reason(s) For Visit Diagnoses Date Provider Providers Copied on Encounter [facility], [address], [place], [place], [id number], [place] tel:[phone] [facility] No Information 1-200 2 Wolf OD Tono. [address] , [address], [place], [address], [place]. tel:[phone] Family History Family Member Type Diagnosis Age At Onset No Information Payers Payer name Insurance type Covered republican ID Authoriza tion(s) No Information Social History Type Description Quantity Date Captured Comments Sex Male Smoking Status No Information Chief Complaint And Reason For Visit No Information Reason For Referral Reason For Referral No Information History Of Present Illness Encounter Date Complaint History Of Prese nt Illness No Information Functional Status Date Functional Assessmen t No Information Instructions Date Instruction Additional Infor mation No Information Assessments Type Assessment Date No Information Patient Care Teams Name Effective Dates (start - stop) Status Members No Information
== END 2024-11-05 08:10 | disposition home or self-care (01) ==
PROVIDERS: PCP Internal Medicine; Visit Provider Internal Medicine
DX: R41.3 Other amnesia (principal)
CPT/HCPCS: 70450

== ENCOUNTER 2025-06-07 08:20 | Outpatient (CLI) | payer OTHER, SELFPAY ==
--- NOTE | ~2025-06-07 | MR_ITS ---
MRI of the left knee Clinical history: Pain Technique: Coronal proton density and proton density-weighted images, sagittal proton-density and T2 fat-sat images, and axial proton-density fat-saturated images were acquired. Findings: Anterior and posterior cruciate ligaments are intact. Medial collateral ligament and the la teral collateral ligament complex are intact. Popliteus tendon is intact. Medial and lateral menisci are intact, without evidence of tear. 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 There is extensive grade IV chondromalacia the upper femoral trochlea. There is focal moderate chondral malacia the lateral tibial plateau. Small tricompartmental osteophytes are present . Extensor mechanism is intact. There is minimal joint effusion with minimal Duval's cyst. Impression: Degenerative changes, as detailed above, worst in the patellofemoral compartment. Minimal Duval's cyst. No ligamentous injury or meniscal tear is seen. Reviewed, dictated and finalized at [facility]. Impression: Degenerative changes, as detailed above, worst in the patellofemoral compartmen t. Minimal Duval's cyst. No ligamentous injury or meniscal tear is seen.
== END 2025-06-07 08:21 | disposition home or self-care (01) ==
PROVIDERS: PCP Internal Medicine; Visit Provider Orthopaedic Surgery
DX: M22.42 Chondromalacia patellae, left knee (principal); M71.22 Synovial cyst of popliteal space [Baker], left knee
CPT/HCPCS: 73721

== ENCOUNTER 2025-09-27 12:19 | Outpatient (CLI) | payer OTHER, SELFPAY ==
[2025-09-27 13:52] LABS: Influenza A QL RT-PCR Negative (Negative); Influenza B QL RT-PCR Negative (Negative); SARS-CoV-2 RNA PCR Negative (Negative)
== END 2025-09-27 12:20 | disposition home or self-care (01) ==
LOC: ANHLAB 12:21
PROVIDERS: PCP Internal Medicine; Visit Provider Internal Medicine
DX: R50.9 Fever, unspecified (principal); I10 Essential (primary) hypertension; Z20.822 Contact with and (suspected) exposure to COVID-19
CPT/HCPCS: 87502; 87635

== ENCOUNTER 2025-11-07 08:19 | Emergency (ER) | payer OTHER, SELFPAY ==
--- OUTSIDE RECORDS SUMMARY | 2025-11-07 08:21 | XMS_ITS | Data Portability ---
Author Organization [place] - [facility], Main Office Address [address] [place] [address] Assessment No assessment recorded. Plan of Treatment Reminders Order Date Submit Date Provider Last Modified By Organization Details Last Modified Time Details Appointments None recorded. Lab PSA, serum or plasma 2024 025 [email or web address], [address], [address], [place], [address], 17:48:55 lipid panel, serum 2024 025 [id number] [facility], [address], [place], [place], [address], 5 17:48:54 CMP, serum or plasma 2024 025 [id number] [facility], [address], [place], [place], [address], 5 17:48:54 CBC w/ auto diff 2024 025 [email or web address] [facility], [address], [place], [place], [address], 5 17:48:54 T4, free, serum 2024 025 [email or web address] [facility], [address], [place], [place], [address], 5 17:48:54 TSH, serum or plasma 2024 025 [facility], [address], [place], [place], [address], 5 17:48:55 PSA, serum or plasma 2023 024 [email or web address] [facility], [address], [place], [place], [address], 4 10:14:23 CMP, serum or plasma 2023 024 [id number] [facility], [address], [place], [place], [address], 4 10:14:22 lipid panel, serum 2023 024 [id number] [facility], [address], [place], [place], [address], 4 10:14:22 CBC w/ auto diff 2023 024 [id number] [facility], [address], [place], [place], [address], 4 10:14:22 TSH, serum or plasma 2023 024 [facility], [address], [place], [place], [address], 4 10:14:23 T4, free, serum 2023 024 [id number] [facility], [address], [place], [place], [address], 4 10:14:23 vitamin B12, serum 2023 024 [id number] [facility], [address], [place], [address], 4 10:14:23 CMP, serum or plasma 2023 024 [id number] [facility], [address], [place], [address], 4 11:38:38 lipid panel, serum 2023 024 [email or web address] [facility], [address], [place], [address], 4 11:38:38 Referral None recorded. Procedures None recorded. Surgeries None recorded. Imaging None recorded. Medication Orders fluorouraci l 0.5 % topical cream 2024 025 [email or web address] [id number], [address] [facility], [place], [place], [id number], 5 17:24:32 Patient TargetsNo targets recorded. Patient Instructions Encounter Date Encounter Id Patient Instructions Last Modified By Organization Details Last Modified Time 08/30/2023 [id number] Follow-up hyperlipidemia -obesity class one all clinically stable. Will continue on current Rx at this time. Had recent blood work looked fine. Will continue on medications and follow-up in six months. Portions of the record may have been created with voice recognition software. Occasional wrong-word or s ound-a-like substitutions may have occurred due to the inherent limitations of voice recognition software. Read the chart carefully and recognize, using context, where substitutions have occurred. Next Appt: 6 Months Approximate Date: 02/26/2024 [email or web address] Not available 08/30/2023 17:04:52 03/16/2024 [id number] risk assessment* [email or web address] Not availabl e 03/16/2024 17:37:08 INFLUENZA VACCIN E Next vaccination to be given fall __2023__ TD/TDAP Patient will get at local pharmacy/health department PNEUMONIA VACCINE Recommended at age 65 SHINGLES Not indicated PSA No screening necessary patient is up to date COLORECTAL SCREENING No screening necessary until age 45 DEPRESSION SCREENING Negative BMI Overweight NUTRITION Eat Heart Healthy Diet PHYSICAL ACTIVITY Need more exercise/physical activity ALCOHOL USE Occasional/Social Use TOBACCO USE non smoker LUNG CANCER SCREENING Non Smoker-not indicated SEXUALLY ACTIVE HEPATITIS C SCREENING Not indicated GLUCOSE SCREENING up to date LIPID SCREENING up to date [email or web address] Not available 03/16/2024 17:23:06 Medical wellness evaluation [...] with voice recognition software. Occasional wrong-word or s ound-a-like substitutions may have occurred due to the inherent limitations of voice recognition software. Read the chart carefully and recognize, using context, where substitutions have occurred. [email or web address] Not available 03/16/2024 17:36:56 10/19/2024 [id number] Follow-up for hyperlipidemia and memory impairment. Plan [...] with voice recognition software. Occasional wrong-word or s ound-a-like substitutions may have occurred due to the inherent limitations of voice recognition software. Read the chart carefully and recognize, using context, where substitutions have occurred. Created: Deuce Curtis M.D. 10.19.2024 04:28 PM [email or web address] Not available 10/19/2024 17:28:16 05/03/2025 [id number] Patient evaluati on risk assessment stable. Follow-up for hyperlipidemia. He is also on semaglutide for weight loss has done quite well. Has lost another 11 lb. Overall has been doing well on this. Had blood work performed back in November which looked fine. Will continue with current medication. Will give a trial of some five fluorouracil for seborrheic change in the posterior thigh. Otherwise doing well. Instructed place this on twice a day with a Band-Aid. Continue on it if there is any problems let us know. Continue on current Rx follow-up in six months Follow Up: 6 Months Approximate Date: 10/30/2025 Portions of record are template driven. When necessary additional context will be provided. Additionally some portions have been created with voice recognition software. Occasional wrong-word or s ound-a-like substitutions may have occurred due to the inherent limitations of voice recognition software. Read the chart carefully and recognize, using context, where substitutions may have occurred. Created: Deuce Curtis M.D. 05.03.2025 04:04 PM [email or web address] Not available 05/03/2025 17:04:27 10/25/2025 [id number] Additional Orders - Directives - Recommendations 1. Dermatology for chronic nailbed problem in the right thumb. 2. Ophthalmology consult or Optometry for lesion left upper eyelid. Immunizations and Vaccines 1. 2021-01 COVID PFIZER 2. 2022-08 INFLUENZA 3. Tetanus or TD Recommended Recommended Vaccine and Immunizations Discussed With Patient! Follow Up: 6 Months Approximate Date: 04/23/2026 Portions of record are template driven. When necessary additional context will be provided. Additionally some portions have been created with voice recognition software. Occasional wrong-word or s ound-a-like substitutions may have occurred due to the inherent limitations of voice recognition software. Read the chart carefully and recognize, using context, where substitutions may have occurred. Created: Deuce Curtis M.D. 10.25.2025 04:20 PM [email or web address] Not available 10/25/2025 17:20:06 Reason for Referral None Reported. Results Created Date Observation Date Name Description Value Unit Range Abnormal Flag Note LastModifiedBy Organization Detail LastModifiedTime 11/20/1911/21/2024 LIPID PANEL (REFL ) cholesterol, total 153 mg/dL <200 normal Not Available [facility] [address] [place], [address], 11/21/2024 03:27:27 11/20/19 25 11/21/2024 LIPID PANEL (REFL ) HDL cholesterol 46 mg/dL > or = 40 normal Not Available [facility] [address] [place], [address], 11/21/2024 03:27:27 11/20/19 25 11/21/2024 LIPID PANEL (REFL ) triglyceride s 67 mg/dL <150 normal Not Available [facility] [address] [place], [address], 11/21/2024 03:27:27 11/20/1911/21/2024 LIPID PANEL (REFL ) LDL-choleste rol 92 mg/dL _(yuri c) normal Refer ence range : <100 Vicenta able range <100 mg/dL for prima ry preve ntion ; <70 mg/dL for patie nts with CHD or diabe tic patie nts with > or = 2 CHD risk facto rs. LDL-C is now calcu lated using the Nadeen n-Hop kins calcu latgio n, which is a valid ated novel roco d ryani oliverio eckert r accur acy than the Fried petar equat ion in the estim ation of LDL-C . Ndaeen salamanca SS et al. SHE. 2013; 310(1 9): 2061- 2068 (http ://ed ucati on.Qu kristiIowa Approach. com/f aq/FA Q164) Not Available [facility] [place] [address] [place], [address], 11/21/2024 03:27:27 11/20/19 25 11/21/2024 LIPID PANEL (REFL ) chol/HDLC ratio 3.3 (calc ) <5.0 normal Not Available [facility] [address] [place], [address], 11/21/2024 03:27:27 11/20/1911/21/2024 LIPID PANEL (REFL ) non HDL cholesterol 107 mg/dL _(yuri c) <130 normal For patie nts with diabe emil plus 1 major ASCVD risk facto r, treat ing to a non-H DL-C goal of <100 mg/dL (LDL- C of <70 mg/dL ) is victor hugo govea c optio n. Not Available [facility] [address] [place], [address], 11/21/2024 03:27:27 11/20/1911/21/2024 COMPR EHENS ELIS METAB OLIC PANEL glucose 100 mg/dL 65-99 high Fasti ng refer ence inter dom For someo ne witho ut known diabe emil, a gluco se value betwe en 100 and 125 mg/dL is consi stent with predi abete s and shoul d be confi rmed with a follo w-up test. Not Available [address], [address], 11/21/2024 03:27:28 11/20/19 25 11/21/2024 COMPR EHENS ELIS METAB OLIC PANEL urea nitrogen (BUN) 12 mg/dL 7-25 normal Not Available [address], [address], 11/21/2024 03:27:28 11/20/19 25 11/21/2024 COMPR EHENS ELIS METAB OLIC PANEL creatinine 1.09 mg/dL 0.60-1 .29 normal Not Available [address], [address], 11/21/2024 03:27:28 11/20/19 25 11/21/2024 COMPR EHENS ELIS METAB OLIC PANEL eGFR 86 mL/mi n/1.7 3m2 > or = 60 normal Not Available [address], [address], 11/21/2024 03:27:28 11/20/1911/21/2024 COMPR EHENS ELIS METAB OLIC PANEL BUN/creatini ne ratio SEE NOTE: (calc ) 6-22 Not Repor luis: BUN and Creat inine are withi n refer ence range . Not Available [address], [address], 11/21/2024 03:27:28 11/20/19 25 11/21/2024 COMPR EHENS ELIS METAB OLIC PANEL sodium 140 mmol/ L 135-14 6 normal Not Available [address], [address], 11/21/2024 03:27:28 11/20/19 25 11/21/2024 COMPR EHENS ELIS METAB OLIC PANEL potassium 4.7 mmol/ L 3.5-5. 3 normal Not Available [address], [address], 11/21/2024 03:27:28 11/20/19 25 11/21/2024 COMPR EHENS ELIS METAB OLIC PANEL chloride 103 mmol/ L 98-110 normal Not Available [address], [address], 11/21/2024 03:27:28 11/20/19 25 11/21/2024 COMPR EHENS ELIS METAB OLIC PANEL carbon dioxide 29 mmol/ L 20-32 normal Not Available [address], [address], 11/21/2024 03:27:28 11/20/19 25 11/21/2024 COMPR EHENS ELIS METAB OLIC PANEL calcium 9.3 mg/dL 8.6-10 .3 normal Not Available [address], [address], 11/21/2024 03:27:28 11/20/19 25 11/21/2024 COMPR EHENS ELIS METAB OLIC PANEL protein, total 7.0 g/dL 6.1-8. 1 normal Not Available [address], [address], 11/21/2024 03:27:28 11/20/19 25 11/21/2024 COMPR EHENS ELIS METAB OLIC PANEL albumin 4.4 g/dL 3.6-5. 1 normal Not Available [address], [address], 11/21/2024 03:27:28 11/20/19 25 11/21/2024 COMPR EHENS ELIS METAB OLIC PANEL globulin 2.6 g/dL_ (calc ) 1.9-3. 7 normal Not Available [address], [address], 11/21/2024 03:27:28 11/20/19 25 11/21/2024 COMPR EHENS ELIS METAB OLIC PANEL albumin/glob ulin ratio 1.7 (calc ) 1.0-2. 5 normal Not Available [address], [address], 11/21/2024 03:27:28 11/20/19 25 11/21/2024 COMPR EHENS ELIS METAB OLIC PANEL bilirubin, total 0.7 mg/dL 0.2-1. 2 normal Not Available [address], [address], 11/21/2024 03:27:28 11/20/19 25 11/21/2024 COMPR EHENS ELIS METAB OLIC PANEL alkaline phosphatase 61 U/L 36-130 normal Not Available [address], [address], 11/21/2024 03:27:28 11/20/19 25 11/21/2024 COMPR EHENS ELIS METAB OLIC PANEL AST 18 U/L 10-40 normal Not Available [address], [address], 11/21/2024 03:27:28 11/20/19 25 11/21/2024 COMPR EHENS ELIS METAB OLIC PANEL ALT 19 U/L 9-46 normal Not Available [address], [address], 11/21/2024 03:27:28 11/20/19 25 11/21/2024 CBC (INCL UDES DIFF/ PLT) white blood cell count 4.7 thous and/u L 3.8-10 .8 normal Not Available [address] [place], [address], 11/21/2024 03:27:30 11/20/1911/21/2024 CBC (INCL UDES DIFF/ PLT) red blood cell count 4.98 zoey on/uL 4.20-5 .80 normal Not Available [address], [address], 11/21/2024 03:27:30 11/20/1911/21/2024 CBC (INCL UDES DIFF/ PLT) hemoglobin 15.8 g/dL 13.2-1 7.1 normal Not Available [address], [address], 11/21/2024 03:27:30 11/20/1911/21/2024 CBC (INCL UDES DIFF/ PLT) hematocrit 47.0 % 38.5-5 0.0 normal Not Available [address], [address], 11/21/2024 03:27:30 11/20/1911/21/2024 CBC (INCL UDES DIFF/ PLT) MCV 94.4 fL 80.0-1 00.0 normal Not Available [address], [address], 11/21/2024 03:27:30 11/20/1911/21/2024 CBC (INCL UDES DIFF/ PLT) MCH 31.7 pg 27.0-3 3.0 normal Not Available [address], [address], 11/21/2024 03:27:30 11/20/1911/21/2024 CBC (INCL UDES DIFF/ PLT) MCHC 33.6 g/dL 32.0-3 6.0 normal For adult s, a sligh t decre ase in the calcu lated MCHC value (in the range of 30 to 32 g/dL) is most likel y not clini jean-paul signi fican t; [place] er, it carlos d be inter prete d with cauti on in corre lat n with other red cell rhys eters and the patie nt's clini yuri condi tion. Not Available [address], [address], 11/21/2024 03:27:30 11/20/1911/21/2024 CBC (INCL UDES DIFF/ PLT) RDW 12.4 % 11.0-1 5.0 normal Not Available [facility] [address], [address], 11/21/2024 03:27:30 11/20/19 25 11/21/2024 CBC (INCL UDES DIFF/ PLT) platelet count 364 thous and/u L 140-40 0 normal Not Available [address], [address], 11/21/2024 03:27:30 11/20/19 25 11/21/2024 CBC (INCL UDES DIFF/ PLT) MPV 8.7 fL 7.5-12 .5 normal Not Available [address], [address], 11/21/2024 03:27:30 11/20/19 25 11/21/2024 CBC (INCL UDES DIFF/ PLT) absolute neutrophils 2811 cells /uL 1500-7 800 normal Not Available [facility] [address], [address], 11/21/2024 03:27:30 11/20/19 25 11/21/2024 CBC (INCL UDES DIFF/ PLT) absolute lymphocytes 1180 cells /uL 850-39 00 normal Not Available [address], [address], 11/21/2024 03:27:30 11/20/19 25 11/21/2024 CBC (INCL UDES DIFF/ PLT) absolute monocytes 498 cells /uL 200-95 0 normal Not Available [facility] [address], [address], 11/21/2024 03:27:30 11/20/19 25 11/21/2024 CBC (INCL UDES DIFF/ PLT) absolute eosinophils 169 cells /uL 15-500 normal Not Available [address], [address], 11/21/2024 03:27:30 11/20/19 25 11/21/2024 CBC (INCL UDES DIFF/ PLT) absolute basophils 42 cells /uL 0-200 normal Not Available [facility] [address], [address], 11/21/2024 03:27:30 11/20/19 25 11/21/2024 CBC (INCL UDES DIFF/ PLT) neutrophils 59.8 % normal Not Available [address], [address], 11/21/2024 03:27:30 11/20/19 25 11/21/2024 CBC (INCL UDES DIFF/ PLT) lymphocytes 25.1 % normal Not Available [address], [address], 11/21/2024 03:27:30 11/20/1911/21/2024 CBC (INCL UDES DIFF/ PLT) monocytes 10.6 % normal Not Available [facility] [address], [address], 11/21/2024 03:27:30 11/20/1911/21/2024 CBC (INCL UDES DIFF/ PLT) eosinophils 3.6 % normal Not Available [address], [address], 11/21/2024 03:27:30 11/20/19 25 11/21/2024 CBC (INCL UDES DIFF/ PLT) basophils 0.9 % normal Not Available [facility] [address] [place], [address], 11/21/2024 03:27:30 11/20/1911/21/2024 T4, FREE T4, free 1.1 NG/dL 0.8-1. 8 normal Not Available [facility] [address] [address] [place], [address], 11/21/2024 03:27:31 11/20/1911/21/2024 TSH TSH 3.10 mIU/L 0.40-4 .50 normal Not Available [facility] [address], [address], 11/21/2024 03:27:32 11/20/1911/21/2024 VITAM IN B12 vitamin B12 467 pg/mL 200-11 00 normal Not Available [facility] [address], [address], 11/21/2024 03:27:33 11/20/1911/21/2024 PSA, TOTAL PSA, total 0.47 NG/mL < or = 4.00 normal The total PSA value from this assay syste m is stand ardiz ed again st the WHO stand charlene. The test resul t will be appro ximat edith 20% lower when juan red to the equim olar- stand ardiz ed total PSA (Elizalde man Coult er). Juan rison of seria l PSA resul ts shoul d be inter prete d with this fact in mind. This test was perfo rmed using the ID90Te ns chemi lumin escen t metho d. Value s obtai joan from diffe rent assay metho ds canno t be used inter carbone eably . PSA level s, regar dless of value , shoul d not be inter prete d as absol [facility] [facility]os evide nce of the prese nce or absen ce of disea se. Not Available [facility] [address] [address] [place], [address], 11/21/2024 03:27:33 11/05/20 24 11/05/2024 CT, brain , w/o contr ast No observ ation record ed. [address], [place], [address], 11/05/2024 14:01:23 06/15/20 25 06/07/2025 MRI, knee, w/o contr ast No observ ation record ed. [address] [facility] [address] [facility] [address], [place], [address], 06/15/2025 07:08:49 Result Notes None recorded. 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 Not Available [facility] 3 14:48:34 Congenital pes planus 26590090 Active Not Available [facility] 3 14:48:34 Hypoglycem ia 326726282 Active Not Available [facility] 3 14:48:34 Contact dermatitis 59606483 Active Not Available [facility] 3 14:48:35 Testicular hypofuncti on 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 Active 2018 Not Available [facility] 3 14:48:34 Hyperlipid emia 41970933 Active 2019 Not Available [facility] 3 14:48:35 Folliculit is 63715601 Active 2021 Not Available [facility] 3 14:48:34 Finding of body mass index 478694704 Active 2021 Not Available [facility] 3 14:48:34 Acute sinusitis 77888593 Active 2021 Not Available [facility] 3 14:48:34 Obese class I 2822332711903 07 Active 2022 Deuce Curtis MD [address] [facility], [facility] [address], [place], [address] , [facility] 3 17:03:13 Pruritic rash 34715223 Active 2023 Ciara Baker CMA null, [place] [facility] 4 16:07:45 Memory impairment 722167072 Active 2023 Deuce Curtis MD [address], [place], [address] , [place] [facility] 4 17:23:37 Disorder of prostate 52595577 Active 2023 Deuce Curtis MD [address], [place], [address] , [facility] 4 17:28:03 Seborrheic keratosis 182166982 Active 2024 Deuce Curtis MD [address], [place], [address] , [facility] 5 17:02:54 Fever with chills 165496619 Active 2024 Ciara Baker CMA null, [place] [facility] 5 12:52:31 Maxillary sinusitis 83335917 Active 2024 Deuce Curtis MD [address], [place], [address] , [facility] 5 16:58:50 Puncture wound of hand without foreign body 090788023 Active 2024 Deuce Curtis MD [address], [place], [address] , [facility] 5 17:14:41 Ingrowing nail 275258454 Active 2024 Deuce Curtis MD [address], [place], [address] , [facility] 5 17:15:04 Problem Notes None recorded. Medical Equipment None Reported. Medications Name Sig Start Date Stop Date Status Note LastModified by Organization Details LastModified Time amoxicillin 500 mg capsule Take 1 capsule 3 times a day by oral route for 10 days. 10/06 completed Not Available Not Available Not Available prednisone 10 mg tablet TAKE 1 TABLET BY MOUTH TWICE DAILY FOR 10 DAYS 10/25 completed Not Available Not Available Not Available atorvastati n 10 mg tablet TAKE 1 TABLET BY MOUTH EVERY DAY 2024 active Not Available Not Available Not Avai lable benzonatate 200 mg capsule Take 1 capsule 3 times a day by oral route. 10/19 completed Not Available Not Available Not Available Medrol (Raz) 4 mg tablets in a dose pack Take by oral route as directed 03/01 completed Not Available Not Available Not Available fluorouraci l 5 % topical cream APPLY A THIN LAYER TO THE AFFECTED AREA ONCE DAILY DIRECTED 2024 active Not Available Not Available Not Avai lable Zithromax Z-Raz 250 mg tablet Take 2 TABLET EVERY DAY by oral route for 1 day then one daily 10/19 completed Not Available Not Available Not Available amoxicillin 500 mg tablet TAKE 1 TABLET BY MOUTH EVERY 8 HOURS 10/25 completed Not Available Not Available Not Available Proctozone- HC 2.5 % topical cream perineal applicator LUCIO THIN LAYER EXT AA 2 TO 4 XD 09/01 completed Not Available Not Available Not Available clotrimazol e-betametha sone 1 %-0.05 % topical cream APPLY TOPICALLY TO THE AFFECTED AREA TWICE DAILY 10/19 completed Not Available Not Available Not Available diclofenac sodium 75 mg tablet,cydney yed release TAKE 1 TABLET BY MOUTH TWICE DAILY active Not Available Not Available No t Available fluorouraci l 0.5 % topical cream APPLY A THIN LAYER TO THE AFFECTED AREA(S) BY TOPICAL ROUTE ONCE DAILY 10/25 completed Not Available Not Available Not Available hydroxyzine HCl 10 mg tablet Take by oral route four times daily PRN for itching 11/19 completed Not Available Not Available Not Available metaxalone 800 mg tablet TAKE 1 TABLET BY MOUTH FOUR TIMES DAILY 05/03 completed Not Available Not Available Not Available multivitami n 05/03 completed Not Available Not Available Not Available Zyrtec 10 mg capsule Take by oral route. active Not Available Not Available No t Available multivitami n combination no.56 chewable tablet Take 1 tablet every day by oral route. active Not Available Not Available No t Available BinaxNOW COVID-19 Ag Self Test kit TEST DIRECTED TODAY 03/01 completed Not Available Not Available Not Available One A Day Men Complete daily 05/03 completed Not Available Not Available Not Available semaglutide 0.25 mg/0.05 mL subcutaneou s syringe inject 40 units weekly 10/25 completed Not Available Not Available Not Available Vitals Date Recorded Body height Body mass index (BMI) Body weight Heart rate Body temperature Oxygen saturation Systolic And Diastolic Provider Name and Address Organization Details Last Updated DateTime 4 190.5 cm 28.9 kg/m2 706573. 84 g 64 /min 97.3 [degF] 99 % 130/78 mm[Hg] MARITZA Zapata [facility] [employer] [facility] 4 17:18:16 Date Recorded Body height Body mass index (BMI) Body weight Heart rate Body temperature Oxygen saturation Systolic And Diastolic Provider Name and Address Organization Details Last Updated DateTime 5 190.5 cm 27.4 kg/m2 54549.5 3 g 61 /min 97 [degF] 98 % 112/68 mm[Hg] Corina Frausto [facility] [employer] 5 16:47:45 Date Recorded Body height Body mass index (BMI) Body weight Body temperature Heart rate Oxygen saturation Systolic And Diastolic Provider Name and Address Organization Details Last Updated DateTime 3 190.5 cm 33.5 kg/m2 133843. 76 g 96.8 [degF] 71 /min 99 % 122/78 mm[Hg] Umm Maria MA [facility] [employer] 3 16:33:54 Date Recorded Body height Body weight Heart rate Body temperature Oxygen saturation Systolic And Diastolic Provider Name and Address Organization Details Last Updated DateTime 4 190.5 cm 348694. 25 g 72 /min 97 [degF] 99 % 130/72 mm[Hg] MARITZA Zapata [facility] [employer] [facility] 4 17:00:50 Date Recorded Body height Body mass index (BMI) Body weight Heart rate Body temperature Oxygen saturation Systolic And Diastolic Provider Name and Address Organization Details Last Updated DateTime 5 190.5 cm 28.4 kg/m2 696885. 26 g 70 /min 97.2 [degF] 95 % 110/62 mm[Hg] Corina Frausto CHIO Duong René [place] [employer] 5 17:01:27 Social History None recorded. Functional Status None [...] HEARING PROBLEMS N MUMPS N SHINGLES N DEPRESSION (INCLUDING POST ) N BOWEL PROBLEMS N STROKE/TIA N ULCERS N BENIGN PROSTATIC [...] HAVE YOU BEEN HOSPITALIZED OR SEEN IN [facility] IN THE PAST YEAR ? N ATHEROSCLEROSIS [...] e and Address Organization Details Recorded Time COVID-19, mRNA, LNP-S, PF, 30 mcg/0.3 mL dose 1 completed Not Available [facility] 10/25/2025 16:52:40 COVID-19, mRNA, LNP-S, bivalent, PF, 50 mcg/0.5 mL or 25mcg/0.25 mL dose 2 completed Not Available [facility] 10/25/2025 16:52:40 COVID-19, mRNA, LNP-S, PF, 50 mcg/0.5 mL 3 completed Not Available [facility] 10/25/2025 16:52:40 SARS-COV-2 (COVID-19) vaccine, UNSPECIFIED 1 completed Not Available [facility] 01/09/2023 14:51:48 SARS-COV-2 (COVID-19) vaccine, UNSPECIFIED 1 completed Not Available [facility] 01/09/2023 14:51:48 Influenza, split virus, quadrivalent, PF 2 completed Not Available [facility] 01/09/2023 14:51:48 Influenza, split virus, quadrivalent, PF 1 completed Not Available [facility] 01/09/2023 14:51:48 Past Encounters Encounter ID Performer Location Encounter Start Date Encounter Closed Date Diagnosis/Indication Diagnosis SNOMED-CT Code Diagnosis ICD10 Code Diagnosis IMO Codes Diagnosis Note [id number] MD ANDREY Hicks_Torsten [facility] [place] [facility] [place] [address] [address] 03/10/2021 00:00:00 03/10/2021 16:48:19 [id number] MD ANDREY Hicks_Torsten Internal [facility] [place] [facility] [place] [address] [place] [address] 09/01/2021 00:00:00 09/01/2021 16:43:31 [id number] MD ANDREY Hicks_[facility]sten Internal [facility] [place] [address] [place], [place] [address] [place] [address] 03/02/2022 00:00:00 03/02/2022 16:41:51 [id number] Deuce Curtis MD [facility] Internal Med [place] [address] [place] [address] [place] [address] 08/31/2022 00:00:00 08/31/2022 16:46:06 [id number] Deuce Curtis MD [facility] Internal Med [place] [address] [place] [address] [place] [address] 03/01/2023 16:13:58 03/01/2023 16:35:19 Hyperlipidemia 37466255 E78.5 Disorder of prostate 302 51941 N42.9 [id number] Deuce Curtis MD [facility] Internal Med [place] [address] [place] [address] [place] [address] 08/30/2023 16:26:12 08/30/2023 17:10:49 Hyperlipidemia 27460642 E78.5 Obese class I 8113562340 45609 E66.9 [id number] Deuce Curtis MD [facility] Internal Med [facility] [address] [address] 03/16/2024 17:12:47 03/16/2024 17:39:59 Adult health examination 349107921 Z00.00 Depression screening 171 792531 Z13.31 Hyperlipidemia 91062373 E78.5 [id number] Deuce Curtis MD [facility] Internal Med [place] [address] [address] 10/19/2024 16:50:32 10/19/2024 17:33:05 Hyperlipidemia 60791988 E78.5 Memory impairment 683134 006 R41.3 Disorder of prostate 302 31455 N42.9 [id number] Deuce Curtis MD [facility] Internal Med [facility] [address] [address] 05/03/2025 16:30:38 05/03/2025 17:19:49 Adult health examination 827370120 Z00.00 [id number] Hyperlipidemia 43096707 E78.5 Seborrheic keratosis 394 302717 L82.1 95466 [id number] Deuce Curtis MD [facility] Internal Med [facility] [address] [place] [address] 10/25/2025 16:51:39 10/25/2025 17:27:33 Hyperlipidemia 87825012 E78.5 Puncture w ound of hand without foreign body 843488969 S61.432A 8141911 Ingrowing nail 826571070 L60.0 313335 Disorder of prostate 302 62664 N42.9 Health Concerns Section Related Observation LastModified by Organization Detai ls LastModified Time None Recorded Concern Status LastModified by Organization Details LastModified Time None Recorded Advance Directives Directive None Recorded Payers Insurance Date Sequence Insurance Name Policy Number Policy Ceron Covered Member ID Ceron Member ID Guarantor Name 10/25/2025 1 [facility]) [id number] Chapincito Norton [id number] Chapincito Norton Notes Date Note Type Note Provider Name and Address Organization Details Recorded Time 3 text/htm l Patient Name: Chapincito Cordero ErrolDate Of Service: Saturday ( 08.30.2023 ): 1980 [...] offered to be evaluated and instructed by plant controller on weight loss diet.Medication List Reviewed and Reconciled 3Atorvastatin Calcium 10 MG (TABLET - ORAL) Once DailySocial HistoryDoes not smoke or drink.Working at a [employer] service currentlyFamily HistoryMother 65 from complications of cystic fibrosisFather 75 ASHD, Interstitial lung disease, RA,High cholesterol and diverticulitisOne older sister in good health. TEST RESULT RANGE UNITSLIPID PANEL (REFL) Date: 3CHOLESTEROL, TOTAL 137 <200 MG/DLHDL CHOLESTEROL 41 > OR = 40 MG/DLTRIGLYCERIDES 122 <150 MG/DLLDL-CHOLESTEROL 76 MG/DL (CALC) Deuce Curtis MD [address] [facility] [address], [place], [address], [facility] [employer] 08/30/2023 17:05:10 4 text/htm l Patient Name: Chapincito Cordero ReiterDate Of Service: [...] HistoryDoes not smoke or drink.Working at a [employer] service currently Family HistoryMother 65 from complications [...] 3.03 0.40-4.50 MIU/L Deuce Curtis MD [address], [place], [address], [facility] [employer] 03/16/2024 17:37:11 4 text/htm l Patient Name: Chapincito Cordero ReiterDate Of Service: [...] HistoryDoes not smoke or drink.Working at a [employer] service currently Family HistoryMother 65 from complications of cystic fibrosisFather 75 ASHD, Interstitial lung disease, RA,High cholesterol and diverticulitisOne older sister in good health. Deuce Curtis MD [address], [place], [address], [place] [facility] 10/19/2024 17:28:32 5 text/htm l Patient Name: Chapincito WillsiterDate Of Service: Saturday ( 05.03.2025 ): 1980 Age: 44 There has been approximately a 10.5 lb weight loss since 10/19/2024. This represents approximately a 4.6% change in weight. Weight change attributable to lifestyle changes. Vital Signs:Blood Pressure: Sitting Rt. Arm 112/68Pulse: Sitting 61 /min and RegularRespiratory Rate: 16Height 75 in or 1.9 mWeight 219.5 lb or 99.6 kgBMI 27.4Temperature: 97 F or 36.1 CPulse Oximetry: 98 % at rest on no oxygen Chief Complaint: Addressed in HPI Problems or conditions discussed in the HPI were the only ones reviewed during the encounter.Only social and family history addressed in the HPI were reviewed during this encounter. Attendants(s) + NoneConstitutional and Systemic Symptoms:none Medication Reconciliation: by patient. History of Present Illness In for a well patient check up. Last well patient evaluation was approximately one year. No interval complaints of any new major medical problems. No hx of any chest pain, shortness of breath, nausea, vomiting, diarrhea or constitutional symptoms.PSA already performedColonoscopy or Cologuard: not dueImmunizations Up To Date or refuses to takeNo Significant Change In Family HxFall Risk normalHearing normalVisual normalReviewed Smoking and Drug HistoryReviewed Immunization HistoryInstructed on importance of weight on diabetes, heart and other diseases aggravated by obesity.Instructed on importance of weight on diabetes, heart and other diseases aggravated by obesity. #1. Type II Hypercholesterolaemia: Currently taking medication and tolerating well. No interval complaints of any muscle pain or arthralgia. No significant liver changes with medications. Last lipid panel: no testing done recently. Therapy reviewed regarding treatment of cholesterol management and include diet and Atorvastatin Calcium. Wellness Evaluation PHQ-2 Score Last Two Weeks Last Two Weeks: 0: Not at all 1: Several Days 2: More than half 3: Almost Every day #1. Little interest or pleasure in doing things: Not At All :Score 0#2. Feeling down, depressed, or hopeless: Not At All :Score 0Score 0FAST Stage: 1 No functional decline Basic ADLS Ambulation Normal YesEating YesBed Transfer YesWalker NoCane NoFalls NoMultiple Falls NoBathing and Showering YesDressing YesFeeding YesFunctional Mobility YesPersonal Hygiene YesToilet Hygiene YesHome Safety Yes Instrumental ADLS House Work YesTaking Medications YesShopping YesTelephone YesUsing Technology YesTransportation YesPreparing Meals Yes Additional Topics Advanced Directives DeclinedLiving Will Declined Social and Physical Activities Drinking History: NoneExercise 20 Minutes per Week: Yes, most of the timeDifficulty Driving Car: NoOther Problems: None,Falling,Orthostatic,Tro uble Eating,Teeth Denture Problems,Problems using Telephone,Tiredness or fatigue Smoking History Does not smokeCannabis History Does Not Use End Of Wellness Section Active Medication ListAtorvastatin Calcium 10 MG (TABLET - ORAL) Once DailyZyrtec 10 MG TABLET, FILM COATED One Daily PrnMultivitamin One DailySemaglutide 2.5 Weekly Adverse Drug Reactions ReviewedNo Known Adverse Drug Reactions! Social HistoryDoes not smoke or drink.Working at a [employer] service currently Family HistoryMother 65 from complications of cystic fibrosisFather 75 ASHD, Interstitial lung disease, RA,High cholesterol and diverticulitisOne older sister in good health. TEST RESULT RANGE UNITSCBC (INCLUDES DIFF/PLT) Date: 11/20/2024WHITE BLOOD CELL COUNT 4.7 3.8-10.8 THOUSAND/ULHEMOGLOBIN 15.8 13.2-17.1 G/DLHEMATOCRIT 47.0 38.5-50.0 %PLATELET COUNT 364 140-400 THOUSAND/ULCOMPREHENSIVE METABOLIC PANEL Date: 11/20/2024SODIUM 140 135-146 MMOL/LPOTASSIUM 4.7 3.5-5.3 MMOL/LGLUCOSE 100 65-99 MG/DLUREA NITROGEN (BUN) 12 7-25 MG/DLEGFR 86 > OR = 60 ML/MIN/1.91H8ZPEWNFWEJH 1.09 0.60-1.29 MG/DLBILIRUBIN, TOTAL 0.7 0.2-1.2 MG/DLALKALINE PHOSPHATASE 61 36-130 U/LAST 18 10-40 U/LALT 19 9-46 U/LLIPID PANEL (REFL) Date: 11/20/2024HOLESTEROL, TOTAL 153 <200 MG/DLHDL CHOLESTEROL 46 > OR = 40 MG/DLTRIGLYCERIDES 67 <150 MG/DLLDL-CHOLESTEROL 92 MG/DL (CALC)PSA, TOTAL Date: 11/20/2024PSA, TOTAL 0.47 < OR = 4.00 NG/MLT4, FREE Date: 11/20/2024T4, FREE 1.1 0.8-1.8 NG/DLTSH Date: 11/20/2024TSH 3.10 0.40-4.50 MIU/L Deuce Curtis MD [address] [place] [address], [address], [facility] 05/03/2025 17:04:43 5 text/htm l Patient Name: Chapincito Cordero ElmaiterDate Of Service: Saturday ( 10.25.2025 ): 1980 Age: 45 There has been approximately a 7.5 lb weight gain since 05/03/2025. This represents approximately a 3.4% change in weight. Weight change attributable to lifestyle changes. Vital Signs:Blood Pressure: Sitting Rt. Arm 110/62Pulse: Sitting 70 /min and RegularRespiratory Rate: 16Height 75 in or 1.9 mWeight 227 lb or 103.0 kgBMI 28.4Temperature: 97.2 F or 36.2 C Chief Complaint: Addressed in HPI Problems or conditions discussed in the HPI were the only ones reviewed during the encounter.Only social and family history addressed in the HPI were reviewed during this encounter. Attendants(s) + NoneConstitutional and Systemic Symptoms:none Medication Reconciliation: from medication list. [id number]: MRI of the knee degenerative changes worse in the patellofemoral compartment. Minimal Duval's cyst. No ligamentous injury or meniscal tear noted History of Present Illness #1. Type II Hypercholesterolaemia: Currently taking medication and tolerating well. No interval complaints of any muscle pain or arthralgia. No significant liver changes with medications. Last lipid panel: fair control. Therapy reviewed regarding treatment of cholesterol management and include diet and Atorvastatin Calcium. #2. Puncture wound left hand resulting from a nail bit. This occurred approximately one week ago. There is no purulent drainage. Seems to be healing well without any intervention. No fluctuance is noted. No adenopathy in the epitrochlear or axillary areas noted.: #3. Trauma to the right great thumbnail. Apparently chronic in nature. It grows out irregularly. Would consider setting up with one of the blueprint assembler to see for further possible evaluation.: Active Medication ListAtorvastatin Calcium 10 MG (TABLET - ORAL) Once DailyZyrtec 10 MG TABLET, FILM COATED One Daily PrnMultivitamin One Daily Adverse Drug Reactions ReviewedNo Known Adverse Drug Reactions! Social HistoryDoes not smoke or drink.Working at a [employer] service currently Family HistoryMother 65 from complications of cystic fibrosisFather 75 ASHD, Interstitial lung disease, RA,High cholesterol and diverticulitisOne older sister in good health. (X) Vaccinations and/or Immunizations Due(X) 2020- COVID [employer](X) 2021- INFLUENZA(X) Tetanus or TD RecommendedImmunizations and Vaccinations Discussed and Implemented if feasible In the Office. Else referred to pharmacies. Preventative Testing: (X) Due (?) Optional( ) 11/20/2024 Albumin 4.4 G/DL N( ) 11/20/2024 PSA 0.47 NG/ML N 11/20/2025( ) 09/08/2021 HAIC 5.0 % OF TOTAL HGB NPreventative Testing Discussed with Patient and Any Attendants Deuce Curtis MD [address] [facility], [facility] [address], [place], [address], [facility] [employer] 10/25/2025 17:25:11
--- OUTSIDE RECORDS SUMMARY | 2025-11-07 08:23 | XMS_ITS | Continuity of Care Document ---
Author Organization [place] - [facility] Internal Med [facility] Address [address] [facility] [address] [place] [address] Assessment No assessment recorded. Plan of Treatment Reminders Order Date Submit Date Provider Last Modified By Organization Details Last Modified Time Details Appointments None recorded . Lab PSA, serum or plasma 10/25/20 25 [id number] [facility], [address], [place], [address], 5 17:48:55 lipid panel, serum 025 10/25/20 25 [id number] [facility], [address], [place], [address], 5 17:48:54 CMP, serum or plasma 025 10/25/20 25 [id number] [facility], [address], [place], [address], 5 17:48:54 CBC w/ auto diff 025 10/25/20 25 [id number] [facility], [address], [place], [address], 5 17:48:54 T4, free, serum 025 10/25/20 25 [id number] [employer] [facility], [address], [place], [address], 5 17:48:54 TSH, serum or plasma 025 10/25/20 25 [employer] [facility], [address], [place], [address], 5 17:48:55 Referral None recorded . Procedures None recorded . Surgeries None recorded . Imaging None recorded . Medication Orders None recorded . Patient TargetsNo targets recorded. Patient Instructions Encounter Date Encounter Id Patient Instructions Last Modified By Organization Details Last Modified Time 10/25/2025 [id number] Additional Orders - Directives - Recommendations 1. Dermatology for chronic nailbed problem in the right thumb. 2. Ophthalmology consult or Optometry for lesion left upper eyelid. Immunizations and Vaccines 1. 2020- COVID PFIZER 2. 2022-08 INFLUENZA 3. Tetanus [...] Created: Deuce Curtis M.D. 10.25.2025 04:20 PM [email or web address] Not available 10/25/2025 17:20:06 Reason for Referral None Reported. Results Created Date Observation Date Name Description Value Unit Range Abnormal Flag Note LastModifiedBy Organization Detail LastModifiedTime Result Notes None recorded. 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 Not Available [facility] 3 14:48:34 Congenital pes planus 52138224 Active Not Available [facility] 3 14:48:34 Hypoglycem ia 134407802 Active Not Available [facility] 3 14:48:34 Contact dermatitis 25608732 Active Not Available [facility] 3 14:48:35 Testicular hypofuncti on 229463324 Active 2018 Not Available [facility] 3 14:48:34 Hyperlipid emia 42182258 Active 2019 Not Available [facility] 3 14:48:35 Folliculit is 04184428 Active 2021 Not Available [facility] 3 14:48:34 Finding of body mass index 049030395 Active 2021 Not Available [facility] 3 14:48:34 Acute sinusitis 93430278 Active 2021 Not Available [facility] 3 14:48:34 Obese class I 4279572616154 07 Active 2022 Deuce Curtis MD [address], [place], [address] , [place] [facility] 3 17:03:13 Pruritic rash 42028818 Active 2023 Ciara Baker CMA null, [place] [facility] 4 16:07:45 Memory impairment 075923119 Active 2023 Deuce Curtis MD [address], [place], [address] , [place] [facility] 4 17:23:37 Disorder of prostate 77481186 Active 2023 Deuce Curtis MD [address], [place], [address] , [place] [facility] 4 17:28:03 Seborrheic keratosis 401605309 Active 2024 Deuce Curtis MD [address], [place], [address] , [place] [facility] 5 17:02:54 Fever with chills 700917181 Active 2024 Ciara Baker CMA null, [place] [facility] 5 12:52:31 Maxillary sinusitis 22471336 Active 2024 Deuce Curtis MD [address], [place], [address] , [place] [facility] 5 16:58:50 Puncture wound of hand without foreign body 066713316 Active 2024 Deuce Curtis MD [address], [place], [address] , [facility] [employer] [facility] 17:14:41 Ingrowing nail 458311702 Active 2024 Deuce Curtis MD [address], [place], [address] , [facility] [employer] [facility] 17:15:04 Problem Notes None recorded. Medical Equipment [...] Updated DateTime 5 190.5 cm 28.4 kg/m2 561170. 26 g 70 /min 97.2 [degF] 95 % 110/62 mm[Hg] Corina Frausto [facility] [employer] 5 17:01:27 Social History None recorded. Functional [...] HAVE YOU BEEN HOSPITALIZED OR SEEN IN [facility] IN THE PAST YEAR ? N ATHEROSCLEROSIS [...] mcg/0.3 mL dose 1 completed Not Available [facility] 10/25/2025 16:52:40 COVID-19, mRNA, LNP-S, bivalent, PF, 50 mcg/0.5 mL or 25mcg/0.25 mL dose 2 completed Not Available [facility] 10/25/2025 16:52:40 COVID-19, mRNA, LNP-S, PF, 50 mcg/0.5 mL 3 completed Not Available [facility] 10/25/2025 16:52:40 SARS-COV-2 (COVID-19) vaccine, UNSPECIFIED 03/27/202 1 completed Not Available [facility] 01/09/2023 14:51:48 SARS-COV-2 (COVID-19) vaccine, UNSPECIFIED 1 completed Not Available [facility] 01/09/2023 14:51:48 Influenza, split virus, quadrivalent, PF 2 completed Not Available [facility] 01/09/2023 14:51:48 Influenza, split virus, quadrivalent, PF 1 completed Not Available [facility] 01/09/2023 14:51:48 Past Encounters Encounter ID Performer Location Encounter Start Date Encounter Closed Date Diagnosis/Indication Diagnosis SNOMED-CT Code Diagnosis ICD10 Code Diagnosis IMO Codes Diagnosis Note [id number] Deuce Curtis MD [facility] Internal Med [facility] [address] [facility] [address] [place] [address] 10/25/2025 16:51:39 10/25/2025 17:27:33 Hyperlipidemia 85602734 E78.5 Puncture w ound of hand without foreign body 520361218 S61.432A 4813070 Ingrowing nail 343751964 L60.0 304146 Disorder of prostate 302 [address] N42.9 Health Concerns Section Related Observation LastModified by Organization Detai ls LastModified Time None Recorded Concern Status LastModified by Organization Details LastModified Time None Recorded Payers Encounter Date Sequence Insurance Name Policy Number Policy Ceron Covered Member ID Ceron Member ID Guarantor Name 10/25/2025 1 [facility] [id number] Chapincito Norton [id number] Chapincito Norton Notes Date Note Type Note Provider Name and Address Organization Details Recorded Time 5 text/htm l Patient Name: Chapincito Cordero ErrolDate Of Service: Saturday ( 10.25.2025 ): 1980 [...] Systemic Symptoms:none Medication Reconciliation: from medication list. [id number]: MRI of the knee degenerative changes worse [...] consider setting up with one of the analysis reporting developer to see for further possible evaluation.: Active Medication ListAtorvastatin Calcium 10 MG (TABLET - ORAL) Once DailyZyrtec 10 MG TABLET, FILM COATED One Daily PrnMultivitamin One Daily Adverse Drug Reactions ReviewedNo Known Adverse Drug Reactions! Social HistoryDoes not smoke or drink.Working at a [employer] service currently Family HistoryMother 65 from complications of cystic fibrosisFather 75 ASHD, Interstitial lung disease, RA,High cholesterol and diverticulitisOne older sister in good health. (X) Vaccinations and/or Immunizations Due(X) 2020- COVID PFIZER(X) 2021- INFLUENZA(X) Tetanus or TD RecommendedImmunizations and Vaccinations Discussed and Implemented if feasible In the Office. Else referred to pharmacies. Preventative Testing: (X) Due (?) Optional( ) 11/20/2024 Albumin 4.4 G/DL N( ) 11/20/2024 PSA 0.47 NG/ML N 11/20/2025( ) 09/08/2021 HAIC 5.0 % OF TOTAL HGB NPreventative Testing Discussed with Patient and Any Attendants Deuce Curtis MD [address], [facility] [address], [place], [address], [place] [facility] 10/25/2025 17:25:11
[2025-11-07 08:30] VITALS: BP 113/68; PULSE 67; RESP 18; TEMP 36.4; O2SAT 100
--- NOTE | 2025-11-07 08:35 | ED.URI ---
HPI - URI/Sore Throat General Chief Complaint: Upper Respiratory Infection Stated Complaint: Cough / Congestion / LT Eye Problem History of Present Illness HPI Narrative: Chief Complaint: Facial pain and congestion suspected to be sinus-related, along with a skin reaction around the eye. Patient Summary: Chapincito presents with a 10-day history of facial pain and congestion, likely due to a sinus infection, and a skin reaction from topical medication use. History of Present Illness: Chapincito reports experiencing drainage and congestion for approximately a week, with facial and jaw pain developing over the last two days. He suspects a sinus infection due to similar past experiences. He can expel mucus by blowing his nose, but coughing does not produce much phlegm. Two weeks ago, his primary care doctor prescribed a topical medication for scaling skin around his eye, which has since caused skin irritation and bleeding. Chapincito has been applying Neosporin for two days to manage the bleeding. He believes he was given the wrong prescription, which was initially meant for a different condition a year ago. He reports using Dextromethorphan (Delsym) for the sinus symptoms, which provides moderate relief. No recent exposure to illness has been noted. Social History: - No reported contact with individuals who are ill. - Requires symptom control to maintain work performance. Family History: Not available. Review of Systems: - Positive for facial and jaw pain, nasal congestion, and increased mucus production. - Reports not having fever or exposure to sick contacts. Vitals and Physical Exam findings: Not available. Related Data Home Medications ?Medication ?Instructions ?Recorded ?Confirmed ?Last Taken ?Type Semaglutide IM 05/20/25 06/08/25 Unknown History atorvastatin 10 mg tablet (Lipitor) 10 mg PO DAILY 05/20/25 06/08/25 Unknown History cetirizine 10 mg tablet (Zyrtec) 10 mg PO DAILY PRN 05/20/25 06/08/25 Unknown History multivitamin 1 tablet PO DAILY 05/20/25 06/08/25 Unknown History Allergies Allergy/AdvReac Type Severity Reaction Status Date / Time No Known Allergies Allergy Verified 11/07/25 08:26 Review of Systems Review of Systems: All systems reviewed & are unremarkable except as noted in HPI and below Eyes: Eyes: Reports as per HPI ENT: Reports as per HPI Cardiovascular: Cardiovascular: Reports as per HPI Respiratory: Respiratory: Reports as per HPI Genitourinary: Genitourinary: Reports as per HPI Musculoskeletal: Musculoskeletal: Reports as per HPI Integumentary/Breasts: Skin/Breast: Reports as per HPI Neurologic: Reports as per HPI Psychiatric: Psychiatric: Reports as per HPI Endocrine: Endocrine: Reports as per HPI Hematologic/Lymphatic: Hematologic/Lymphatic: Reports as per HPI Allergic/Immunologic: Allergic/Immunologic: Reports as per HPI [facility] Surgical History Surgical History History of wisdom tooth extraction S/P bunionectomy Family History Family History Father Diabetes mellitus Heart disease Depression Grandparent Alcohol abuse Social History Social History (Updated 06/08/25 @ 07:26 by Vale Maldonado CMA) Smoking status: Never smoker Alcohol intake: current Substance use: never Lack of Transportation: No Lack of Food: Never True Current Housing: I Have Housing Concerned About Future Housing: No Difficulty Paying Gas/Electric Bills: No Difficulty Paying for Meds: No Currently Unemployed: No Education: Bachelor's Degree Difficulty w/ Childcare or Family Care: No Exam Const: General: cooperative, healthy appearing, comfortable, no acute distress and well developed Orientation/consciousness: patient oriented x3 HENMT: Head: normal to inspection Ears: TM's normal bilaterally Face/Nose/Sinus: Normal nares present Throat: posterior oropharynx abnormal erythema; no cobblstoning and no exudates Eyes: General: appearance normal, both eyes and all related structures Neck: Neck: no lymphadenopathy Resp: Effort & Inspection: normal respiratory effort and able to speak in complete sentences Auscultation: clear to auscultation bilaterally Cardio: Rate: regular rate Rhythm: regular rhythm Heart sounds: S1 normal heart sound present and S2 normal heart sound present Skin: General skin exam: normal color Other: left eye lid with abrasion/ulceration noted no erythema no drainage Neuro: General: patient oriented x3 Cognition (Neuro): normal cognition Speech: normal speech Psych: Mental Status: mental status grossly normal Course Course Level of Care: Express Care Visit Vital Signs Vital signs: Vital Signs Temperature 97.6 F 11/07/25 08:30 Pulse Rate 67 11/07/25 08:30 Respiratory Rate 18 11/07/25 08:30 Blood Pressure 113/68 11/07/25 08:30 Pulse Oximetry 100 11/07/25 08:30 Oxygen Delivery Room Air 11/07/25 08:30 Temperature 97.6 F 11/07/25 08:30 Pulse Rate 67 11/07/25 08:30 Respiratory Rate 18 11/07/25 08:30 Blood Pressure 113/68 11/07/25 08:30 Pulse Oximetry 100 11/07/25 08:30 Oxygen Delivery Room Air 11/07/25 08:30 MDM MDM Narrative Medical decision making narrative: Assessment: 1. Sinusitis with facial and jaw pain. 2. Skin irritation potentially due to incorrect topical medication application. 3. Possible adverse reaction or inappropriate use of topical 5-Fluorouracil. Plan: - Prescribe antibiotics and steroids to address sinusitis symptoms. - Recommend continued use of pseudoephedrine for congestion relief. - Review and confirm the previous topical medication prescription and advise on appropriate management for the skin reaction. - Follow up if symptoms do not improve or if skin irritation worsens. Differential Diagnosis Differential Diagnosis: covid, flu past 5 day shala so will not test sinusitis, uri Discharge Plan Discharge Clinical Impression: Sinusitis, Abrasion of eyelid Patient Disposition: Home Condition: Stable Instructions: Antibiotic Form Additional Instructions: mupiricion ointment to eye twice a day until healed. if no improvement or worse to your provider or to derm Take antibiotics as prescribed and finish the course unless otherwise instructed symptomatic treatment the sinus med you have please contine to use. Patient Language: Jamaican Prescriptions: New amoxicillin-pot clavulanate 875-125 mg tablet 1 tablet PO Q12H 7 Days Qty: 14 0RF prednisone 20 mg tablet 40 mg PO DAILY Qty: 8 0RF mupirocin [Centany] 2 % ointment 1 applic topical BID Qty: 15 0RF No Action atorvastatin [Lipitor] 10 mg tablet 10 mg PO DAILY multivitamin Tablet 1 tablet PO DAILY cetirizine [Zyrtec] 10 mg tablet 10 mg PO DAILY PRN Semaglutide IM diclofenac sodium 75 mg tablet,delayed release (DR/EC) 75 mg PO BID Qty: 60 1RF Follow-up/Referrals: Ever,Deuce Rivera MD [Primary Care Provider] Time of Disposition: 08:59 Quality NIHSS Nursing Documentation ED NIHSS nursing documentation: reviewed/agree
== END 2025-11-07 09:08 | disposition home or self-care (01) ==
PROVIDERS: Emergency Provider Nurse Practitioner Family; PCP Internal Medicine
DX: J32.9 Chronic sinusitis, unspecified (principal); S00.212A Abrasion of left eyelid and periocular area, initial encounter; X58.XXXA Exposure to other specified factors, initial encounter
CPT/HCPCS: 99213; G0463